=== PATIENT | female | born 1955 | race Caucasian/White ===

== ENCOUNTER → 2017-02-18 | Outpatient (CLI) | payer OTHER ==
[~2017-02-18] MED LIST: BUPR15TA PO; LOTR52CA PO; VITA100066 PO
--- NOTE | 2017-02-18 20:03 | ECGEPIP ---
Stationary ECG Study [facility] Test Date: 2017-02-18 Pat Name: KVNG COBB Department: Room: - Gender: F Vice President For Instruction: : 1955 Requested By: GARRETT Rao Order Number: [id number] Reading MD: Arnulfo Johnston Measurements Intervals [place] Rate: 73 P: 67 [place]: 160 QRS: 77 QRSD: 96 T: 65 QT: 399 QTc: 440 Interpretive Statements SINUS RHYTHM Baseline artifact Similar to tracing 11-30-15 Electronically Signed On 02-18-2017 20:03:16 EDT by Arnulfo Johnston
== END ==
LOC: M EKG 16:46
PROVIDERS: ATTEND Anesthesiology
DX: Z00.00 Encounter for general adult medical examination without abnormal findings (principal)

== ENCOUNTER → 2017-02-23 | Day surgery (SDC) | payer OTHER ==
[~2017-02-23] VITALS: Ht 167.6 cm; Wt 63.5 kg
[~2017-02-23] MED LIST changes: +BUPIVACAINE/EPIN 0.5% 30 ML VIAL As Ordered ONE; +FLUMAZENIL 0.5 MG/5 ML VIAL As Ordered ONE; +LIDOCAINE 2% INJ 100 MG/5 ML SDV (FOR ANES.) As Ordered ONE; +LIDOCAINE W/EPINEPHRINE 1% 20ML VIAL As Ordered ONE; +LR 1,000 ML IV SCH; +MIDAZOLAM INJ 2 MG/2 ML VIAL (J2250) As Ordered ONE; +MORPHINE 10 MG/ML 1ML VIAL IV PRN; +ONDANSETRON 4MG/2ML VIAL (J2405) As Ordered ONE; +ONDANSETRON 4MG/2ML VIAL (J2405) IV PRN; +PERCOCET 5MG/325MG TAB PO PRN; +PROPOFOL 200 MG/20 ML VIAL As Ordered ONE; +ROCURONIUM BROMIDE 50 MG/5 ML VIAL As Ordered ONE; +dexameTHASONE 4 MG/ML 1ML VIAL (J1100) As Ordered ONE; +ePHEDrine SULFATE 25 MG/5 ML(5MG/ML) SYRINGE As Ordered ONE; +fentaNYL 100 MCG/2 ML INJECTION (J3010) IV PRN; +fentaNYL 250 MCG/5 ML INJECTION (J3010) As Ordered ONE
[2017-02-23 14:30] VITALS: BP 143/87
--- NOTE | 2017-02-23 23:17 | RO ---
DATE OF PROCEDURE: 02/23/2017 PREPROCEDURE DIAGNOSIS: Sleep apnea. POSTPROCEDURE DIAGNOSIS: Sleep apnea. OPERATIVE PROCEDURE: Lateral pharyngoplasty. SURGEON: Fortunato Bianchi MD COUNTER TENDER: ANESTHESIA: General. DESCRIPTION OF PROCEDURE: Under general anesthesia, the patient was intubated. I infiltrated the area with lidocaine and epinephrine. I then made an incision at the anterior pillar, dissected down to the tonsil, dissected the tonsil free and then removed the tonsil using Coblator at a setting of 6 and 4. This same procedure was performed on the both sides. Then using the cautery I made an incision in the inferior aspect of the posterior pillar through the muscle and dissected a 1 cm wide strip of muscle superiorly based by using the cautery. Once this was elevated then I put a suture of #3-0 Vicryl through the area. I then put a suture around the levator veli palatini muscle and then sutured to the posterior aspect of the maxillary arch just posterior to the last tooth. I then used the needle and then threaded it and put the other side of that suture through that and then tied that suture anterior-superiorly. The same procedure performed on the opposite side. There was less than 1 mL of blood loss. The patient tolerated the procedure well. A nasogastric tube was passed to suction the upper esophagus. The patient tolerated the procedure well, was extubated and transferred to the recovery room in excellent condition.
== END | disposition home or self-care (01) ==
LOC: M SDC 10:24
PROVIDERS: ATTEND Otolaryngology
DX: G47.33 Obstructive sleep apnea (adult) (pediatric) (principal); I10 Essential (primary) hypertension; F32.9 Major depressive disorder, single episode, unspecified; Z79.899 Other long term (current) drug therapy
CPT/HCPCS: 42950; 88302; J1100; J2250; J2405; J3010

== ENCOUNTER 2017-05-13 09:09 | Emergency (ER) | payer OTHER ==
[~2017-05-13] VITALS: Ht 167.6 cm; Wt 63.6 kg
[~2017-05-13 09:09] MED LIST changes: -BUPIVACAINE/EPIN 0.5% 30 ML VIAL As Ordered ONE; -FLUMAZENIL 0.5 MG/5 ML VIAL As Ordered ONE; -LIDOCAINE 2% INJ 100 MG/5 ML SDV (FOR ANES.) As Ordered ONE; -LIDOCAINE W/EPINEPHRINE 1% 20ML VIAL As Ordered ONE; -LR 1,000 ML IV SCH; -MIDAZOLAM INJ 2 MG/2 ML VIAL (J2250) As Ordered ONE; -MORPHINE 10 MG/ML 1ML VIAL IV PRN; -ONDANSETRON 4MG/2ML VIAL (J2405) As Ordered ONE; -ONDANSETRON 4MG/2ML VIAL (J2405) IV PRN; -PERCOCET 5MG/325MG TAB PO PRN; -PROPOFOL 200 MG/20 ML VIAL As Ordered ONE; -ROCURONIUM BROMIDE 50 MG/5 ML VIAL As Ordered ONE; -dexameTHASONE 4 MG/ML 1ML VIAL (J1100) As Ordered ONE; -ePHEDrine SULFATE 25 MG/5 ML(5MG/ML) SYRINGE As Ordered ONE; -fentaNYL 100 MCG/2 ML INJECTION (J3010) IV PRN; -fentaNYL 250 MCG/5 ML INJECTION (J3010) As Ordered ONE
--- NOTE | 2017-05-13 10:05 | REP ---
CT Head without contrast HISTORY: Headache COMPARISON: 11/30/2015 There is no intraparenchymal hemorrhage, acute infarct, mass or midline shift. The ventricular system is normal in appearance. There is no extra cerebral collection. There is no fracture. The visualized sinuses are clear. IMPRESSION: There is no intracranial lesion. Signed by Thompson Bui MD 05/13/2017 09:56 A
[2017-05-13 10:31] LABS: BASO % 0.8 % (0.0-1.0); EOS # 0.1 K/mm3 (0.0-0.50); EOS % 1.7 % (0.0-3.0); LARGE UNSTAINED CELL # 0.1 K/mm3 (0.0-0.4); LYMPH % 22.9 % (24.0-44.0); MEAN CORPUSCULAR HEMOGLOBIN 30.9 pg (27.0-33.0); MEAN CORPUSCULAR HGB CONC 34.4 g/dl (32.0-36.5); MEAN CORPUSCULAR VOLUME 90.1 fl (80.0-96.0); MONO # 0.3 K/mm3 (0.0-0.8); NEUTROPHILS # 3.1 K/mm3 (1.8-7.7); NEUTROPHILS % 67.5 % (36.0-66.0); PLATELET COUNT, AUTOMATED 334 k/mm3 (150-450); RED CELL DISTRIBUTION WIDTH 12.2 % (11.5-14.5); WHITE BLOOD COUNT 4.5 K/mm3 (4.0-10.0)
[2017-05-13 10:44] LABS: ANION GAP 5 MEQ/L (8-16); BLOOD UREA NITROGEN 12 MG/DL (7-18); CALCIUM LEVEL 9.2 MG/DL (8.8-10.2); CARBON DIOXIDE LEVEL 26 MEQ/L (21-32); CHLORIDE LEVEL 108 MEQ/L (98-107); CREATININE FOR GFR 0.88 MG/DL (0.55-1.02); GLOMERULAR FILTRATION RATE > 60.0 (>45); GLUCOSE, FASTING 124 MG/DL (80-110); POTASSIUM SERUM 3.7 MEQ/L (3.5-5.1); SODIUM LEVEL 139 MEQ/L (136-145)
[2017-05-13 11:24] LABS: MAGNESIUM LEVEL 2.2 MG/DL (1.8-2.4)
[2017-05-13 12:18] VITALS: BP 153/84
--- NOTE | 2017-05-13 21:56 | ECGEPIP ---
Stationary ECG Study [facility] - ED Test Date: 2017-05-13 Pat Name: KVNG COBB Department: Room: - Gender: F Dispensary Attendant: kimberly : 1955 Requested By: ENOCH LOVING PA-C. Order Number: [id number] Reading MD: Lelo Coffey Measurements Intervals [place] Rate: 72 P: 66 NC: 155 QRS: 70 QRSD: 92 T: 62 QT: 413 QTc: 453 Interpretive Statements SINUS RHYTHM NSTTW ABNORMALITY SIMILAR 02/18/17 Electronically Signed On 05-13-2017 21:55:30 EDT by Lelo Coffey
== END 2017-05-13 12:23 | disposition home or self-care (01) ==
LOC: M ED 09:09 → EDBD 09:09 → M ED 12:23
DX: T62.8X1A Toxic effect of other specified noxious substances eaten as food, accidental (unintentional), initial encounter (principal); E86.0 Dehydration; Z88.8 Allergy status to other drugs, medicaments and biological substances; Z87.891 Personal history of nicotine dependence; Z79.899 Other long term (current) drug therapy

== ENCOUNTER 2017-06-26 12:30 | Emergency (ER) | payer OTHER ==
[~2017-06-26] VITALS: Ht 167.6 cm; Wt 63.6 kg
[2017-06-26] MEDS ORDERED: ZOLP5TAB PO (12:53)
[2017-06-26 13:46] LABS: BASO % 0.6 % (0.0-1.0); EOS # 0.1 K/mm3 (0.0-0.50); EOS % 2.7 % (0.0-3.0); LARGE UNSTAINED CELL # 0.1 K/mm3 (0.0-0.4); LARGE UNSTAINED CELL % 2.1 % (0.0-4.0); LYMPH # 1.4 K/mm3 (1.5-4.5); LYMPH % 39.5 % (24.0-44.0); MEAN CORPUSCULAR HEMOGLOBIN 30.7 pg (27.0-33.0); MEAN CORPUSCULAR HGB CONC 34.5 g/dl (32.0-36.5); MEAN CORPUSCULAR VOLUME 88.9 fl (80.0-96.0); MONO # 0.2 K/mm3 (0.0-0.8); MONO % 6.6 % (0.0-5.0); NEUTROPHILS # 1.7 K/mm3 (1.8-7.7); NEUTROPHILS % 48.5 % (36.0-66.0); PLATELET COUNT, AUTOMATED 307 k/mm3 (150-450); WHITE BLOOD COUNT 3.4 K/mm3 (4.0-10.0)
[2017-06-26 13:58] LABS: INR 0.99
[2017-06-26 14:06] LABS: ALBUMIN 4.1 GM/DL (3.2-5.2); ALBUMIN/GLOBULIN RATIO 1.11 (1.00-1.93); ALKALINE PHOSPHATASE 53 U/L (45-117); ALT/SGPT 15 U/L (12-78); ANION GAP 6 MEQ/L (8-16); AST/SGOT 11 U/L (15-37); BILIRUBIN,DIRECT < 0.1 MG/DL (0.0-0.2); BILIRUBIN,TOTAL 0.4 MG/DL (0.2-1.0); BLOOD UREA NITROGEN 10 MG/DL (7-18); CALCIUM LEVEL 9.4 MG/DL (8.8-10.2); CARBON DIOXIDE LEVEL 29 MEQ/L (21-32); CHLORIDE LEVEL 107 MEQ/L (98-107); CREATININE FOR GFR 0.87 MG/DL (0.55-1.02); GLOMERULAR FILTRATION RATE > 60.0 (>45); GLUCOSE, FASTING 86 MG/DL (80-110); SODIUM LEVEL 142 MEQ/L (136-145); TOTAL PROTEIN 7.8 GM/DL (6.4-8.2)
[2017-06-26] MEDS ORDERED: HEPARIN DRIP 25,000 UNITS in APPROPRIATE DILUENT 1 EA IV SCH (14:17)
[2017-06-26] MEDS ORDERED: ASPIRIN 325 MG TAB PO ONE (14:30)
[2017-06-26] MEDS ORDERED: HEPARIN SOD (PORCINE) 5000 UNITS/ML VIAL IV ONE (14:30)
[2017-06-26] MEDS ORDERED: CLOPIDOGREL 300 MG TAB (PLAVIX) PO ONE (14:30)
--- NOTE | 2017-06-26 14:59 | REP ---
CHEST X-RAY: Two views. HISTORY: Chest pain. COMPARISON STUDY: November 30, 2015. FINDINGS: EKG monitoring electrodes are seen. The lungs are well inflated and clear. Pleural angles are sharp. Heart size is normal. No significant bony abnormality is seen. IMPRESSION: No active disease. Signed by Alex Castano MD 06/26/2017 04:58 P
[2017-06-26 15:10] VITALS: BP 174/91
--- NOTE | 2017-06-28 08:11 | ECGEPIP ---
Stationary ECG Study [facility] - ED Test Date: 2017-06-26 Pat Name: KVNG COBB Department: Room: - Gender: F Electronic Maintenance Supervisor: YAAKOV : 1955 Requested By: DUSTIN Mccormick Order Number: [id number] Reading MD: Lelo Coffey Measurements Intervals [place] Rate: 81 P: 60 VA: 132 QRS: 79 QRSD: 95 T: 53 QT: 395 QTc: 460 Interpretive Statements SINUS RHYTHM NSTTW ABNORMALITY SIMILAR 05/13/17 Electronically Signed On 06-28-2017 8:10:32 EDT by Lelo Coffey
== END 2017-06-26 15:13 | disposition short-term general hospital (02) ==
LOC: M ED 12:30
DX: I20.0 Unstable angina (principal); R94.31 Abnormal electrocardiogram [ECG] [EKG]; G45.8 Other transient cerebral ischemic attacks and related syndromes; F32.9 Major depressive disorder, single episode, unspecified; G47.30 Sleep apnea, unspecified; Z87.891 Personal history of nicotine dependence; Z79.899 Other long term (current) drug therapy; Z88.8 Allergy status to other drugs, medicaments and biological substances

== ENCOUNTER → 2017-09-23 | Outpatient (CLI) | payer OTHER ==
[~2017-09-23] MED LIST changes: +ZOLP5TAB PO
[2017-09-23 15:42] LABS: IONIZED CALCIUM 4.7 MG/DL (4.5-5.3)
[2017-09-23 16:01] LABS: BASO % 0.5 % (0.0-1.0); EOS # 0.1 10^3/uL (0.0-0.50); EOS % 2.7 % (0.0-3.0); LYMPH # 1.7 10^3/uL (1.5-4.5); LYMPH % 40.5 % (24.0-44.0); MEAN CORPUSCULAR HGB CONC 33.3 g/dl (32.0-36.5); MONO # 0.4 10^3/uL (0.0-0.8); MONO % 8.7 % (0.0-5.0); NEUTROPHILS % 47.6 % (36.0-66.0); PLATELET COUNT, AUTOMATED 329 10^3/uL (150-450); RED CELL DISTRIBUTION WIDTH 11.6 % (11.5-14.5); WHITE BLOOD COUNT 4.2 10^3/uL (4.0-10.0)
[2017-09-23 18:11] LABS: ERYTHROCYTE SEDIMENTATION RATE 11 mm/hr (0-30)
== END ==
LOC: M LAB 15:11
PROVIDERS: ATTEND Otolaryngology
DX: H93.13 Tinnitus, bilateral (principal)

== ENCOUNTER → 2017-12-08 | Outpatient (REF) ==
[2017-12-09 09:20] LABS: RUBELLA IgG QUALITATIVE IMMUNE (IMMUNE)
== END ==
LOC: M LAB 09:05
DX: Z02.89 Encounter for other administrative examinations (principal)

== ENCOUNTER 2019-02-27 21:59 | Observation (INO) | payer OTHER ==
[~2019-02-27] VITALS: Ht 167.6 cm; Wt 65.3 kg
[2019-02-27] MEDS: CARVedilol 3.125 MG TAB PO SCH (21:00)
[~2019-02-27 21:59] MED LIST changes: +ASPI81TA26 PO; +CARV3.12 PO; +D 50CAP PO; +ZOLP12.515 PO; +buPROPion **SR TABLET** (ZYBAN) 150MG PO SCH
[2019-02-27] MEDS ORDERED: CHARCOAL ACTIVATED LIQUID 25 GM/120 ML BTL PO ONE (22:45)
[2019-02-27 22:57] LABS: HEMATOCRIT 34.7 % (36.0-47.0); HEMOGLOBIN 11.6 g/dl (12.0-15.5); MEAN CORPUSCULAR HEMOGLOBIN 30.4 pg (27.0-33.0); MEAN CORPUSCULAR HGB CONC 33.4 g/dl (32.0-36.5); MEAN CORPUSCULAR VOLUME 90.8 fl (80.0-96.0); PLATELET COUNT, AUTOMATED 256 10^3/uL (150-450); RED BLOOD COUNT 3.82 10^6/uL (4.00-5.40)
[2019-02-27] MEDS ORDERED: AMLO5TAB6 PO (23:14)
[2019-02-27] MEDS ORDERED: DOCU100C16 PO (23:14)
[2019-02-27] MEDS ORDERED: TIZA4CAP PO (23:14)
[2019-02-27] MEDS ORDERED: ASPI81CH48 PO (23:14)
[2019-02-27] MEDS ORDERED: LOSA50TA88 PO (23:14)
[2019-02-27 23:28] LABS: ACETAMINOPHEN LEVEL < 2.0 UG/ML (10.0-30.0); ALBUMIN 3.5 GM/DL (3.2-5.2); ALT/SGPT 17 U/L (12-78); BILIRUBIN,DIRECT < 0.1 MG/DL (0.0-0.2); BILIRUBIN,TOTAL 0.2 MG/DL (0.2-1.0); BLOOD UREA NITROGEN 15 MG/DL (7-18); CALCIUM LEVEL 8.5 MG/DL (8.8-10.2); CARBON DIOXIDE LEVEL 27 MEQ/L (21-32); CHLORIDE LEVEL 108 MEQ/L (98-107); CREATININE FOR GFR 0.85 MG/DL (0.55-1.30); ETHYL ALCOHOL (ETHANOL) < 0.003 % (0.000-0.010); GLOMERULAR FILTRATION RATE > 60.0 (>45); GLUCOSE, FASTING 82 MG/DL (70-100); SALICYLATE LEVEL < 1.7 MG/DL (5.0-30.0); SODIUM LEVEL 142 MEQ/L (136-145); TOTAL PROTEIN 6.5 GM/DL (6.4-8.2)
[2019-02-28 00:11] LABS: AMPHETAMINES LEVEL URINE NEGATIVE (NEGATIVE); BARBITURATES URINE NEGATIVE (NEGATIVE); BENZODIAZEPINES URINE NEGATIVE (NEGATIVE); CANNABINOIDS URINE NEGATIVE (NEGATIVE); COCAINE METABOLITE URINE NEGATIVE (NEGATIVE); METHADONE URINE NEGATIVE (NEGATIVE); OPIATES URINE NEGATIVE (NEGATIVE); PHENCYCLIDINE URINE NEGATIVE (NEGATIVE)
[2019-02-28] MEDS ORDERED: ACETAMINOPHEN TAB 650MG DOSE (2X325MG) PO PRN (00:30)
[2019-02-28] MEDS ORDERED: NS 1,000 ML IV SCH (00:30)
[2019-02-28] MEDS ORDERED: tiZANidine 4 MG TAB PO PRN (00:30)
--- NOTE | 2019-02-28 00:30 | HPEPDOC ---
General Date of Admission Chief Complaint The patient is a 64-year-old female admitted with a reason for visit of Overdose. Source: Patient History of Present Illness 64 y/o F with h/o insomnia took 12.5 mg ambien tabs by mistake after that she was feeling a bit drowsy; called her PMD office and was asked to come to ER. IN ER pt was found with vitals of BP 135/72, HR 73, RR 16, Temp 96.0, SpO2- 93% on RA; Pt was found drowsy. Hospitalist service was consulted to admit the pt for observation. Pt was seen and examined at bedside in ER. Pt was drowsy but oriented to time place and person. Pt was following commands. Pt denied any other complaint. Home Medications Scheduled Amlodipine Besylate (Amlodipine Besylate) 5 Mg Tablet, 5 MG PO DAILY, (Reported) Aspirin (Aspirin) 81 Mg Tab.chew, 81 MG PO DAILY, (Reported) Bupropion HCl (Wellbutrin Sr) 150 Mg Tabcr, 150 MG PO BID, (Reported) Carvedilol (Carvedilol) 3.125 Mg Tab, 3.125 MG PO BID, (Reported) Cholecalciferol (Vitamin D3) (Vitamin D3) 5,000 Unit Cap, 5,000 UNIT PO DAILY, (Reported) Docusate Sodium (Docusate Sodium) 100 Mg Capsule, 100 MG PO BID, (Reported) Losartan Potassium (Losartan Potassium) 50 Mg Tablet, 50 MG PO DAILY, (Reported) Scheduled PRN Tizanidine HCl (Tizanidine HCl) 4 Mg Capsule, 4 MG PO TID PRN for MUSCLE SPASMS, (Reported) Zolpidem Tartrate (Zolpidem Tartrate ER) 12.5 Mg Tab, 12.5 MG PO QHS PRN for sleep, (Reported) Allergies Coded Allergies: methocarbamol (Verified Allergy, Unknown, 02/03/19) Past Medical History Medical History HTN, depression, reactive leucopenia, insomnia. Surgical History left subclavian stent placement Family History reviewed, non contributory Social History * Smoker: former Smoker Alcohol: occationally Drugs: denies A-FIB/CHADSVASC A-FIB History Current/History of A-Fib/PAF?: No Current Oral Anticoagulant The: No Review of Systems Other systems 10 points review of system was performed and it was negative except as per HPI Physical Examination General Exam: Positive: Other Eye Exam: Positive: PERRLA ENT Exam: Positive: Atraumatic, Mucous membr. moist/pink Neck Exam: Positive: Supple Chest Exam: Positive: Clear to auscultation, Normal air movement Heart Exam: Positive: Rate Normal, Normal S1, Normal S2 Abdomen Exam: Positive: Normal bowel sounds, Soft Extremity Exam: Positive: Normal pulses Skin Exam: Positive: Nl turgor and temperature Neuro Exam: Positive: Normal Speech, Strength at 5/5 X4 ext, Cranial Nerves 3- 12 NL Psych Exam: Positive: Oriented x 3 Other physical findings drowsy Vital Signs Vital Signs Date Time Temp Pulse Resp B/P (MAP) Pulse Ox O2 Delivery O2 Flow Rate FiO2 02/27/19 23:42 67 20 130/73 (92) 99 Room Air 02/27/19 22:11 96.0 Laboratory Data Labs 24H Laboratory Tests 2 02/27/19 22:46: Nucleated Red Blood Cells % (auto) 0.0, Anion Gap 7L, Glomerular Filtration Rate > 60.0, Calcium Level 8.5L, Aspartate Amino Transf (AST/SGOT) 14, Alanine Aminotransferase (ALT/SGPT) 17, Alkaline Phosphatase 43L, Total Bilirubin 0.2, Direct Bilirubin < 0.1, Total Protein 6.5, Albumin 3.5, Albumin/Globulin Ratio 1.17, Thyroid Stimulating Hormone (TSH) 2.650, Salicylates Level < 1.7L, Acetaminophen Level < 2.0L, Ethyl Alcohol Level < 0.003 02/27/19 23:36: Urine Amphetamines Screen NEGATIVE, Urine Benzodiazepines Screen NEGATIVE, Urine Opiates Screen NEGATIVE, Urine Methadone Screen NEGATIVE, Urine Barbiturates Screen NEGATIVE, Urine Phencyclidine Screen NEGATIVE, Urine Cocaine Metabolite Screen NEGATIVE, Urine Cannabinoids Screen NEGATIVE CBC/BMP Laboratory Tests 02/27/19 22:46 Red Blood Count 3.82 L, Mean Corpuscular Volume 90.8, Mean Corpuscular Hemoglobin 30.4, Mean Corpuscular Hemoglobin Concent 33.4, Red Cell Distribution Width 11.8 Assessment/Plan 64 y/o F c/o drowsiness after accidently overdosing on PO Ambien Labs reviewed Utox reviewed Impression- drowsiness secondary to suspected accidental Ambient overdose Problems (1) Accidental overdose Status: Acute Problem Text: supportive care ivf, neurochecks, pulse oxy (2) HTN (hypertension) Status: Chronic Problem Text: will resume home meds (3) Depression Status: Chronic Problem Text: will resume home meds (4) Insomnia Status: Chronic Problem Text: will hold home meds for now (5) Leukopenia Status: Chronic Problem Text: stable Plan / VTE VTE Prophylaxis Ordered?: No VTE Exclusion Mechanical Proph: Low Risk for VTE JOSE OBRIEN MD Feb 28, 2019 00:30
[2019-02-28] MEDS: DOCUSATE SODIUM 100 MG CAP PO SCH ×2 (02:04→08:41)
[2019-02-28 08:00] VITALS: BP 132/81
[2019-02-28] MEDS: CARVedilol 3.125 MG TAB PO SCH (08:42)
[2019-02-28 08:43] VITALS: BP 132/81
--- NOTE | 2019-02-28 08:52 | DS.PDOC ---
Discharge Summary General Date of Admission Feb 28, 2019 at 00:16 Date of Discharge Feb 28, 2019 Attending Physician: ACE DC MD Discharge Summary PROCEDURES PERFORMED DURING STAY: [None]. ADMITTING DIAGNOSES: 1. Accidental zolpidem overdose DISCHARGE DIAGNOSES: 1. Accidental zolpidem overdose COMPLICATIONS/CHIEF COMPLAINT: Sedative Overdose. HISTORY OF PRESENT ILLNESS: Patient is a 64-year-old white female, with a history of insomnia, who presented to the emergency room via EMS after accidentally taking for 12.5 mg Ambien tablets x4 by mistake. Patient immediately realized that she had accidentally taken the wrong medication and contacted her primary care answering service who advised the patient to call an ambulance and presented to the emergency room. EMS arrived and found the patient to be responsive, oriented to time place and person, albeit extremely drowsy. HOSPITAL COURSE: Once in the emergency department, patient was given activated charcoal. Vital si gns remained stable. Laboratory examination did not indicate any serious abnormalities. ECG was normal. Patient denied wishing to hurt herself or others. Hospitalist was called for further admission and subsequent overnight observation. Patient remained in ED holding overnight, where she received IV fluids and regular neuro checks. Home medications for hypertension, depression, Vitamin D deficiency were given. She reports waking at approximately 0200 this morning. She denies any persistent drowsiness or difficulty concentrating. She denies any pain or discomfort. She has ambulated and urinated without any difficulty. Patient requesting to return home with outpatient follow-up. Risk mitigation strategies to prevent recurrence were discussed. DISCHARGE MEDICATIONS: Please see below. ALLERGIES: Please see below. PHYSICAL EXAMINATION ON DISCHARGE: VITAL SIGNS: Please see below. GENERAL: Awake, alert, oriented to person place and time. In no acute distress. Very pleasant female appearing of stated age in hospital gown. HEENT: EOMI, PERRLA, no scleral icterus, mucous membranes moist NECK: No lymphadenopathy, tracheal deviation CARDIOVASCULAR EXAMINATION: Regular rate and rhythm, normal S1 and S2, no murmurs RESPIRATORY EXAMINATION: Clear to auscultation bilaterally. Good air movement throughout without wheezing rales or rhonchi. ABDOMINAL EXAMINATION: Soft, nontender, nondistended, no masses palpated EXTREMITIES: Able to move all extremities independently and freely. No weakness. No lower extremity edema, no calf tenderness. SKIN: No new or evolving lesions NEUROLOGICAL EXAMINATION: Awake, alert, oriented to person place and time. No focal neurologic deficits. PSYCHIATRIC EXAMINATION: Mood and affect are appropriate. Patient denies thoughts of wanting to harm self or others. LABORATORY DATA: Please see below. IMAGING: None ACTIVITY: As tolerated DIET: As tolerated DISCHARGE PLAN: Home with self-care DISCHARGE INSTRUCTIONS: 1. Please follow-up with primary care provider within 1 week 2. Please implement new organizational system to prevent accidental medication admin in the future. 3. Remain compliant with treatment plan and medications 4. Return to the ER if you experience any problems DISCHARGE CONDITION: Stable TIME SPENT ON DISCHARGE: Greater than 35 minutes. Vital Signs/I&Os Vital Signs Date Time Temp Pulse Resp B/P (MAP) Pulse Ox O2 Delivery O2 Flow Rate FiO2 02/28/19 08:00 96.1 74 18 132/81 (98) 98 02/28/19 06:43 Room Air Laboratory Data Labs 24H Laboratory Tests 2 02/27/19 22:46: Nucleated Red Blood Cells % (auto) 0.0, Anion Gap 7L, Glomerular Filtration Rate > 60.0, Calcium Level 8.5L, Aspartate Amino Transf (AST/SGOT) 14, Alanine Aminotransferase (ALT/SGPT) 17, Alkaline Phosphatase 43L, Total Bilirubin 0.2, D irect Bilirubin < 0.1, Total Protein 6.5, Albumin 3.5, Albumin/Globulin Ratio 1.17, Thyroid Stimulating Hormone (TSH) 2.650, Salicylates Level < 1.7L, Acetaminophen Level < 2.0L, Ethyl Alcohol Level < 0.003 02/27/19 23:36: Urine Amphetamines Screen NEGATIVE, Urine Benzodiazepines Screen NEGATIVE, Urine Opiates Screen NEGATIVE, Urine Methadone Screen NEGATIVE, Urine Barbiturates Screen NEGATIVE, Urine Phencyclidine Screen NEGATIVE, Urine Cocaine Metabolite Screen NEGATIVE, Urine Cannabinoids Screen NEGATIVE CBC/BMP Laboratory Tests 02/27/19 22:46 Red Blood Count 3.82 L, Mean Corpuscular Volume 90.8, Mean Corpuscular Hemoglobin 30.4, Mean Corpuscular Hemoglobin Concent 33.4, Red Cell Distribution Width 11.8 Discharge Medications Scheduled Amlodipine Besylate (Amlodipine Besylate) 5 Mg Tablet, 5 MG PO DAILY, (Reported) Aspirin (Aspirin) 81 Mg Tab.chew, 81 MG PO DAILY, (Reported) Bupropion HCl (Wellbutrin Sr) 150 Mg Tabcr, 150 MG PO BID, (Reported) Carvedilol (Carvedilol) 3.125 Mg Tab, 3.125 MG PO BID, (Reported) Cholecalciferol (Vitamin D3) (Vitamin D3) 5,000 Unit Cap, 5,000 UNIT PO DAILY, (Reported) Docusate Sodium (Docusate Sodium) 100 Mg Capsule, 100 MG PO BID, (Reported) Losartan Potassium (Losartan Potassium) 50 Mg Tablet, 50 MG PO DAILY, (Reported) Scheduled PRN Tizanidine HCl (Tizanidine HCl) 4 Mg Capsule, 4 MG PO TID PRN for MUSCLE SPASMS, (Reported) Zolpidem Tartrate (Zolpidem Tartrate ER) 12.5 Mg Tab, 12.5 MG PO QHS PRN for sleep, (Reported) Allergies Coded Allergies: methocarbamol (Verified Allergy, Unknown, 02/03/19) GME ATTESTATION GME ATTESTATION My faculty preceptor for this patient encounter was physically present during the encounter and was fully available. All aspects of the patient interview, examination, medical decision making process, and medical care plan development were reviewed and approved by the faculty preceptor. The faculty preceptor is aware and concurs with the plan as stated in the body of this note and will attest to such by his/her cosignature. ATTENDING NOTE I, Ace Dc, have both independently examined this patient as well as reviewed the documentation. I have discussed in detail with the resident the findings and plan of treatment as documented in the residents documentation. I will continue to follow the patient and offer further guidance to the patients care as necessary during this hospital stay. MARIAM ARMAS DO Feb 28, 2019 08:52 ACE DC MD Feb 28, 2019 21:19
[2019-02-28] MEDS ORDERED: LOSARTAN 50 MG TAB PO SCH (09:00)
[2019-02-28] MEDS ORDERED: ASPIRIN 81 MG CHEW TABLET PO SCH (09:00)
[2019-02-28] MEDS ORDERED: amLODIPine 5 MG TAB PO SCH (09:00)
[2019-02-28] MEDS ORDERED: VITAMIN D 1,000 INTERNATIONAL UNITS TABLET PO SCH (09:00)
--- NOTE | 2019-02-28 14:44 | ECGEPIP ---
Stationary ECG Study [facility] - ED Test Date: 2019-02-27 Pat Name: KVNG COBB Department: Room: [place] [address] Gender: F Frame Runner: GARCÍA : 1955 Requested By: MELISSA BEAULIEU Order Number: [id number] Reading MD: Arnulfo Johnston Measurements Intervals [place] Rate: 71 P: 68 MD: 152 QRS: 78 QRSD: 100 T: 57 QT: 407 QTc: 443 Interpretive Statements SINUS RHYTHM Similar to tracing done 06-26-17 Electronically Signed On 02-28-2019 14:43:44 EDT by Arnulfo Johnston
== END 2019-02-28 10:05 | disposition home or self-care (01) ==
LOC: EDBD 21:59 → M ED 21:59 → M ED INP 22:00 → UNDOADMOB 02-28 00:16 → UNDODISOB 02-28 10:05
PROVIDERS: ADMIT Internal Medicine; ATTEND Internal Medicine
DX: T42.6X1A Poisoning by other antiepileptic and sedative-hypnotic drugs, accidental (unintentional), initial encounter (principal); Y92.009 Unspecified place in unspecified non-institutional (private) residence as the place of occurrence of the external cause; I10 Essential (primary) hypertension; F32.9 Major depressive disorder, single episode, unspecified; E55.9 Vitamin D deficiency, unspecified; Z79.82 Long term (current) use of aspirin; G47.00 Insomnia, unspecified; Z88.8 Allergy status to other drugs, medicaments and biological substances; Z79.899 Other long term (current) drug therapy
CPT/HCPCS: 36415; 80048; 80076; 80307; 84443; 85027; 93005; 96374; 99285; G0480

== ENCOUNTER 2019-08-01 09:57 | Day surgery (SDC) | payer OTHER ==
[~2019-08-01] VITALS: Ht 167.6 cm; Wt 61.7 kg
[~2019-08-01 09:57] MED LIST changes: +AMLO5TAB6 PO; +ASPI81CH48 PO; +DOCU100C16 PO; +HYDR25TAB PO; +LOSA50TA88 PO; +NS 1,000 ML IV SCH; +TIZA4CAP PO; -buPROPion **SR TABLET** (ZYBAN) 150MG PO SCH
[2019-08-01] MEDS ORDERED: PROPOFOL 200 MG/20 ML VIAL As Ordered ONE (10:39)
[2019-08-01] MEDS ORDERED: LIDOCAINE 2% INJ 100 MG/5 ML SDV (FOR ANES.) As Ordered ONE (10:40)
--- NOTE | 2019-08-01 11:36 | ROOR ---
Patient Name: Kayla Lou Procedure Date: 08/01/2019 11:12 AM Date of : 1955 Age: 64 Room: [facility] Gender: Female Note Status: Finalized Procedure: Total Colonoscopy to Cecum Indications: Chronic idiopathic constipation Providers: Charles Sinha MD Referring MD: DANAY JON MD Requesting Provider: Medicines: Monitored Anesthesia Care Complications: No immediate complications. Procedure: Pre-Anesthesia Assessment: - The heart rate, respiratory rate, oxygen saturations, blood pressure, adequacy of pulmonary ventilation, and response to care were monitored throughout the procedure. The Colonoscope was introduced through the anus and advanced to the cecum, identified by appendiceal orifice and ileocecal valve. The colonoscopy was performed without difficulty. The patient tolerated the procedure well. The quality of the bowel preparation was excellent. Findings: The perianal and digital rectal examinations were normal. Non-bleeding internal hemorrhoids were found during retroflexion. The hemorrhoids were small and Grade I (internal hemorrhoids that do not prolapse). Multiple small and large-mouthed diverticula were found in the recto-sigmoid colon, sigmoid colon and descending colon. The exam was otherwise without abnormality on direct and retroflexion views. Impression: - Non-bleeding internal hemorrhoids. - Diverticulosis in the recto-sigmoid colon, in the sigmoid colon and in the descending colon. - The examination was otherwise normal on direct and retroflexion views. - No specimens collected. - The exam was otherwise normal to the cecum. Recommendation: - Patient has a contact number available for emergencies. The signs and symptoms of potential delayed complications were discussed with the patient. Return to normal activities tomorrow. Written discharge instructions were provided to the patient. - High fiber diet. - Discharge patient to home. - Continue present medications. - Repeat colonoscopy in 10 years for screening purposes. - Return to referring physician. - The findings and recommendations were discussed with the patient's family. Charles Sinha MD Charles Sinha MD 08/01/2019 11:35:26 AM Electronically signed by Charles Sinha MD Number of Addenda: 0 Note Initiated On: 08/01/2019 11:12 AM Estimated Blood Loss: Estimated blood loss: none.
[2019-08-01 11:57] VITALS: BP 123/67
== END 2019-08-01 12:05 | disposition home or self-care (01) ==
LOC: M OPP 09:57
PROVIDERS: ATTEND Internal Medicine Gastroenterology
DX: K64.0 First degree hemorrhoids (principal); K57.30 Diverticulosis of large intestine without perforation or abscess without bleeding; K59.04 Chronic idiopathic constipation; G47.33 Obstructive sleep apnea (adult) (pediatric); I34.0 Nonrheumatic mitral (valve) insufficiency; I50.32 Chronic diastolic (congestive) heart failure; I11.0 Hypertensive heart disease with heart failure; Z79.82 Long term (current) use of aspirin; Z79.899 Other long term (current) drug therapy; Z88.8 Allergy status to other drugs, medicaments and biological substances; Z87.891 Personal history of nicotine dependence

== ENCOUNTER → 2019-08-12 | Outpatient (CLI) | payer OTHER ==
[~2019-08-12] MED LIST changes: -NS 1,000 ML IV SCH
--- NOTE | 2019-08-26 01:32 | ECWPNPC ---
PATIENT NAME: KVNG COBB : 1955 GENDER: FEMALE VISIT DATE: 08/12/2019 DISCHARGE DATE: 08/12/19 153 VISIT LOCKED DATE TIME: PHYSICIAN: TRISTAN MANZO MD RESOURCE: TRISTAN MANZO MD REASON FOR APPOINTMENT 1. NECK & BACK HISTORY OF PRESENT ILLNESS HISTORY OF PRESENT ILLNESS: PAIN THE PATIENT DESCRIBES THE PAIN... 64 YEAR OLD FEMALE PATIENT WITH A HISTORY OF CHRONIC NECK AND THORACIC PAIN. THE PATIENT DESCRIBES THE PAIN ACHING AND DAILY WITH A PAIN SCORE OF 5-8/10 DEPENDING ON PHYSICAL ACTIVITY. THE PATIENT STATES SHE HAS BEEN SUFFERING FROM HER PAIN FOR SEVERAL YEARS AND IT IS AFFECTING HER ABILITY TO PERFORM HER DAILY ACTIVITIES SUCH SITTING, STANDING TOO LONG, RESTING, AND DAILY LIVING. THE PATIENT SAYS HER NECK PAIN BEGAN OVER A YEAR AGO AND INCREASES WITH MOVEMENT. THE PATIENT SAYS HER LOW BACK PAIN STARTED IN 2016, IS WORSE ON THE RIGHT SIDE, AND SITTING DOES NOT HELP HER PAIN. THE PATIENT MENTIONS SHE IS BEING FOLLOWED BY [facility] FOR HER NECK PAIN WITH NUMBNESS AND TINGLING DOWN HER LEFT ARM. THE PATIENT SAYS SHE HAS A HISTORY OF A LEFT SUBCLAVIAN STENT THAT WAS SURGICALLY DONE AROUND TWO YEARS AGO. PATIENT DENIES UNEXPLAINABLE WEIGHT LOSS, FEVER, CHILLS, NEW CHANGES ON HER URINARY OR BOWEL CONTROL. FALL RISK SCREENING: SCREENING :NO FALLS REPORTED IN THE LAST YEAR CURRENT MEDICATIONS TAKING ZOLPIDEM TARTRATE ER 12.5 MG TABLET EXTENDED RELEASE 1 TABLET AT BEDTIME NEEDED ORALLY ONCE A DAY TAKING TIZANIDINE HCL 4 MG TABLET 1/2 TO 1 TABLET NEEDED ORALLY TWO TIMES A DAY PRN TAKING LOSARTAN POTASSIUM 50 MG TABLET DIRECTED ORALLY TAKING BUPROPION HCL ER (SR) 150 MG TABLET EXTENDED RELEASE 12 HOUR 1 TABLET IN THE MORNING ORALLY ONCE A DAY TAKING VITAMIN D (ERGOCALCIFEROL) 51559 UNIT CAPSULE 1 CAPSULE ORALLY TAKING ASPIR-LOW 81 MG TABLET DELAYED RELEASE 1 TABLET ORALLY ONCE A DAY TAKING CARVEDILOL 3.125 MG TABLET DIRECTED ORALLY TAKING AMLODIPINE BESYLATE 5 MG TABLET 1 TABLET ORALLY ONCE A DAY TAKING HYDROCHLOROTHIAZIDE 25 MG TABLET 1 TABLET IN THE MORNING ORALLY ONCE A DAY DISCONTINUED WELLBUTRIN 100 MG TABLET 1 TABLET ORALLY BID MEDICATION LIST REVIEWED AND RECONCILED WITH THE PATIENT PAST MEDICAL HISTORY HTN HEADACHES LEFT SUBCLAVIAN STEAL SYNDROME ANXIETY DEPRESSION INSOMNIA SLEEP APNEA IMPROVED AFTER TONSILLECTOMY ALLERGIES METHOCARBAMOL: RASH - ALLERGY SURGICAL HISTORY TONSILLECTOMY DETACHED RETINA REPAIR LEFT SUBCLAVIAN STENT BILAT CATARACT SURGERY HYSTERECTOMY RIGHT MIDDLE FINGER TRIGGER FINGER REPAIR FAMILY HISTORY FATHER: ALIVE MOTHER: ALIVE 1 BROTHER(S) , 1 SISTER(S) . 1 SON(S) , 1 DAUGHTER(S) - HEALTHY. SOCIAL HISTORY GENERAL: TOBACCO USE ARE YOU A:FORMER SMOKER HOW LONG HAS IT BEEN SINCE YOU LAST SMOKED?> 10 YEARS PAIN CLINIC PFS, CLERGY, PUBLIC HEALTH REFERRALS HAS THE PATIENT BEEN EDUCATED REGARDING HIS/HER PLAN OF CARE?YES HAS THE PATIENT BEEN EDUCATED REGARDING PAIN, THE RISK FOR PAIN, THE IMPORTANCE OF EFFECTIVE PAIN MANAGEMENT, AND THE PAIN ASSESSMENT PROCESS?YES ADVANCE DIRECTIVE ADVANCE DIRECTIVE DISCUSSED WITH PATIENT:YES DECLINED JUDAISM [id number] OTHER LANGUAGE LANGUAGES SPOKEN:[place]ILI LEARNING BARRIERS / SPECIAL NEEDS BARRIERS TO LEARNING?NO HEARING IMPAIRED?NO VISION IMPAIRED?YES :CORRECTIVE LENSES COGNITIVELY IMPAIRED?NO READINESS TO LEARN?YES LEARNING PREFERENCES?NO LEARNING CAPABILITIES PRESENT?YES EMOTIONAL BARRIERS?NO SPECIAL DEVICES?NO HOSPITALIZATION/MAJOR DIAGNOSTIC PROCEDURE BLOOD PRESSURE/CHEST PRESSURE 04/2016 REVIEW OF SYSTEMS REVIEWED BY: PROVIDER: TRISTAN MANZO MD . CONSTITUTIONAL: ANY CHANGE IN YOUR MEDICAL CONDITION? YES, PT C/O NECK PAIN THIS PAST WEEK, AND TODAY THORACIC PAIN . CHILLS NO . FEVER NO . INFECTION: DO YOU HAVE NEW INFECTIONS? NO . DO YOU HAVE HISTORY OF MRSA? NO . MUSCULOSKELETAL: ANY NEW PATTERNS OF PAIN OR NUMBNESS? YES, RIGHT FOOT TOES TINGLING INTERMITTENT . GASTROENTEROLOGY: ANY NEW CHANGE IN BOWEL CONTROL? NO . GENITOURINARY: ANY NEW CHANGE IN BLADDER CONTROL? NO . IS THERE A CHANCE YOU COULD BE ? NO . HEMATOLOGY/LYMPH: DO YOU TAKE ANY BLOOD THINNERS? (FOR EXAMPLE- COUMADIN, PLAVIX, AGGRENOX, PLATEL, PRADAXA, OR XARELTO) NO . WHEN WAS YOUR LAST DOSE? DATE: TIME: . NEUROLOGY: HAVE YOU FALLEN IN THE PAST 12 MONTHS? NO . ANY NEW EXTREMITY NUMBNESS OR WEAKNESS? NO . CARDIOLOGY: DO YOU HAVE A PACEMAKER OR DEFIBRILLATOR? NO . RESPIRATORY: HAVE YOU BEEN SICK IN THE PAST WEEK? NO . FEVER NO . FLU LIKE SYMPTOMS? NO . COUGH NO . INTEGUMENTARY: DO YOU HAVE ANY RASHES OR OPEN SORES? NO . ALLERGIC/IMMUNO: ARE YOU ALLERGIC TO IV DYE? NO . ANY NEW ALLERGIES? NO . PSYCHIATRIC: DO YOU HAVE THOUGHTS OF HURTING YOURSELF OR SOMEONE ELSE? NO . ARE YOU ABUSED, NEGLECTED, OR IN AN UNSAFE ENVIRONMENT? NO . ENDOCRINOLOGY: ARE YOU DIABETIC? NO . OTHER: DO YOU NEED ANY PRESCRIPTIONS? NO . IF YES, PLEASE LIST: ____ . ANY NEW PROBLEMS WITH YOUR MEDICATIONS? NO . WHEN DID YOU LAST EAT? ____ . WHEN DID YOU LAST DRINK? ____ . WHAT DID YOU LAST DRINK? ____ . NAME OF PERSON DRIVING YOU HOME? ____ . DO YOU HAVE ANY OTHER QUESTIONS OR CONCERNS YES, FLU VACCINE 08/02/19 . VITAL SIGNS WT 139.6 LBS, HT 66 IN, BMI 22.53 INDEX, BP 133/61 MM HG, HR 72 /MIN, RR 18 /MIN, TEMP 97.5 F, OXYGEN SAT % 98%, NA INITIALS SC 13:55, REVIEWED BY: ALICJA. EXAMINATION GENERAL EXAMINATION: PATIENT IS ALERT O X 3 AND COOPERATIVE. LUNGS CLEAR, TO AUSCULTATION. HEART: NO MURMURS OR GALLOPS; FACIAL CRANIAL NERVES ARE GROSSLY NORMAL. GOOD SYMMETRY OF FACIAL MUSCLE MOVEMENT. NORMAL VISUAL ALLEN. PRESENCE OF BANDS OF TISSUE AND TRIGGER POINTS WITH RESTRICTION OF MOVEMENT OF THE LEFT NECK AND LEFT SHOULDER AREAS. PAIN INCREASES OVER THE CERVICAL FACET JOINTS WITH EXTENSION AND LATERAL ROTATION OF THE NECK, MAINLY ON THE RIGHT SIDE. TENDERNESS OVER THE PARASPINAL MUSCLE GROUP OF THE LOW BACK. MRI OF THE CERVICAL SPINE DONE ON 08/11/2018 SHOWS FACET ARTHROPATHY CHANGES. MRI OF THE THORACIC SPINE DONE ON 05/11/2019 SHOWS DISC PROTRUSION AT T6-T7 AND FACET ARTHROPATHY CHANGES. 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 COBB'S PAIN MANAGEMENT CASE. DUE TO THE TRIGGER POINTS, BANDS OF TISSUE, AND RESTRICTION OF MOVEMENT, I WOULD LIKE TO MOVE FORWARD WITH A NECK TRIGGER POINT INJECTION AT THIS TIME. WE DISCUSSED THE BENEFITS, RISKS, AND ALTERNATIVES OF THE INJECTION AND THE PATIENT WOULD LIKE TO PROCEED. DEPENDING ON THE TRIGGER POINT INJECTION RESULTS, I MAY PLAN TO DO DIAGNOSTIC FACET BLOCKS TO CONSIDER RADIOFREQUENCY OR A CERVICAL EPIDURAL IN THE FUTURE. THE PATIENT WILL FOLLOW UP IN SEVERAL WEEKS AFTER HER INJECTION. INSTRUCTIONS WERE GIVEN, QUESTIONS WERE ANSWERED, PATIENT REPORTS UNDERSTANDING AND AGREES WITH THE PLAN. I, TIMOTHY SCHILLING, DOCUMENTED THE ABOVE INFORMATION ACTING A SCRIBE FOR DR. MANZO. I HAVE REVIEWED THE ABOVE DOCUMENT, WRITTEN BY TIMOTHY SCHILLING SCRIBAster AND I VERIFY THAT IT IS ACCURATE. DEAR FREDY ENRIQUEZ M.D.: THANK YOU FOR YOUR KIND REFERRAL OF KVNG COBB. IF YOU WANT TO DISCUSS HER CASE WITH ME PLEASE CALL ME AT THE PAIN CENTER AT [phone]. SINCERELY, TRISTAN MANZO MD PAIN MEDICINE . PROCEDURE CODES G8427 CURRENT MEDS W/DOSAGES DOCUMENTED G8730 PAIN ASSESS POS TOOL F/U PLAN DOC FA211 ESTABILISHED PATIENT [facility] CHARGE DISPOSITION & COMMUNICATION FOLLOW UP REASON: TPI ELECTRONICALLY SIGNED BY TRISTAN MANZO MD, MD ON 08/25/2019 AT 06:47 PM EDT DISCLAIMER : THIS IS A VISIT SUMMARY EXTRACTED FROM THE [employer] CHART. IT IS NOT A COPY OF THE [employer] PROGRESS NOTE. MTDD
== END ==
LOC: M PAIN 14:00
PROVIDERS: ATTEND Anesthesiology
DX: M79.18 Myalgia, other site (principal); M54.2 Cervicalgia; M47.812 Spondylosis without myelopathy or radiculopathy, cervical region; M47.814 Spondylosis without myelopathy or radiculopathy, thoracic region; M54.6 Pain in thoracic spine; I10 Essential (primary) hypertension; Z79.82 Long term (current) use of aspirin; Z79.899 Other long term (current) drug therapy; Z88.8 Allergy status to other drugs, medicaments and biological substances; Z87.891 Personal history of nicotine dependence

== ENCOUNTER → 2019-10-19 | Outpatient (CLI) | payer OTHER ==
[~2019-10-19] MED LIST changes: +BUPIVACAINE HCL 0.25% 10 ML VIAL As Ordered ONE; +BUPIVACAINE HCL 0.25% 30 ML VIAL As Ordered ONE; +TRIAMCINOLONE ACETONIDE SUSP 40 MG/ML VIAL (J3301) As Ordered ONE; +diazePAM 5 MG TAB As Ordered ONE
--- NOTE | 2019-10-22 04:07 | ECWPNPC ---
PATIENT NAME: KVNG COBB : 1955 GENDER: FEMALE VISIT DATE: 10/19/2019 DISCHARGE DATE: 10/19/19 1050 VISIT LOCKED DATE TIME: PHYSICIAN: TRISTAN MANZO MD RESOURCE: TRISTAN MANZO MD REASON FOR APPOINTMENT 1. TPI HISTORY OF PRESENT ILLNESS HISTORY OF PRESENT ILLNESS: PAIN THE PATIENT DESCRIBES THE PAIN... FALL RISK SCREENING: SCREENING :NO FALLS REPORTED IN THE LAST YEAR CURRENT MEDICATIONS TAKING ZOLPIDEM TARTRATE ER 12.5 MG TABLET EXTENDED RELEASE 1 TABLET AT BEDTIME NEEDED ORALLY ONCE A DAY, NOTES: 10/18 2100 TAKING TIZANIDINE HCL 4 MG TABLET 1/2 TO 1 TABLET NEEDED ORALLY TWO TIMES A DAY PRN, NOTES: LAST WEEK TAKING LOSARTAN POTASSIUM 50 MG TABLET DIRECTED ORALLY , NOTES: 10/19 700 TAKING BUPROPION HCL ER (SR) 150 MG TABLET EXTENDED RELEASE 12 HOUR 1 TABLET IN THE MORNING ORALLY BID, NOTES: 10/19 700 TAKING VITAMIN D (ERGOCALCIFEROL) 54229 UNIT CAPSULE 1 CAPSULE ORALLY DAILY, NOTES: 10/17 TAKING ASPIR-LOW 81 MG TABLET DELAYED RELEASE 1 TABLET ORALLY ONCE A DAY, NOTES: 10/17 TAKING CARVEDILOL 3.125 MG TABLET DIRECTED ORALLY BID, NOTES: 10/19 700 TAKING AMLODIPINE BESYLATE 5 MG TABLET 1 TABLET ORALLY ONCE A DAY, NOTES: 10/17 TAKING HYDROCHLOROTHIAZIDE 25 MG TABLET 1 TABLET IN THE MORNING ORALLY ONCE A DAY, NOTES: 10/19 700 MEDICATION LIST REVIEWED AND RECONCILED WITH THE PATIENT PAST MEDICAL HISTORY HTN HEADACHES LEFT SUBCLAVIAN STEAL SYNDROME ANXIETY DEPRESSION INSOMNIA SLEEP APNEA IMPROVED AFTER TONSILLECTOMY CHRONIC NECK AND BACK PAIN DETACHED LEFT RETINA TEARING OF RIGHT RETINA ALLERGIES METHOCARBAMOL: RASH - ALLERGY SURGICAL HISTORY TONSILLECTOMY DETACHED RETINA REPAIR -LEFT LEFT SUBCLAVIAN STENT BILAT CATARACT SURGERY HYSTERECTOMY RIGHT MIDDLE FINGER TRIGGER FINGER REPAIR RETINAL TEAR RIGHT EYE REPAIR WITH LASER FAMILY HISTORY FATHER: ALIVE MOTHER: ALIVE 1 BROTHER(S) , 1 SISTER(S) . 1 SON(S) , 1 DAUGHTER(S) - HEALTHY. SOCIAL HISTORY GENERAL: TOBACCO USE ARE YOU A:FORMER SMOKER HOW LONG HAS IT BEEN SINCE YOU LAST SMOKED?> 10 YEARS PAIN CLINIC PFS, CLERGY, PUBLIC HEALTH REFERRALS HAS THE PATIENT BEEN EDUCATED REGARDING HIS/HER PLAN OF CARE?YES HAS THE PATIENT BEEN EDUCATED REGARDING PAIN, THE RISK FOR PAIN, THE IMPORTANCE OF EFFECTIVE PAIN MANAGEMENT, AND THE PAIN ASSESSMENT PROCESS?YES LATEX QUESTIONNAIRE LATEX ALLERGY : HAVE YOU EVER DEVELOPED ANY TYPE OF REACTION AFTER HANDLING LATEX PRODUCTS SUCH RUBBER GLOVES, CONDOMS, DIAPHRAGMS, BALLOONS, SOCKS, OR UNDERWEAR?NO LATEX ALLERGY : HAVE YOU EVER DEVELOPED ANY TYPE OF REACTION DURING OR AFTER DENTAL APPOINTMENT, VAGINAL/RECTAL EXAMINATION, SURGICAL PROCEDURE, OR ANY OTHER EXPOSURE?NO LATEX RISK : HAVE YOU EVER HAD ANY DIFFICULTY BREATHING OR HIVES AFTER EATING OR HANDLING ANY FRUITS, OR VEGETABLES; SUCH KIWI, BANANAS, STONE FRUITS, OR CHESTNUTSNO LATEX RISK : DO YOU HAVE A PREVIOUS PERSONAL HISTORY OF MORE THAN NINE SURGERIES, SPINA BIFIDA, OR REPEATED CATHERIZATIONS? NO LATEX RISK : ARE YOU FREQUENTLY EXPOSED TO LATEX PRODUCTS IN YOUR OCCUPATION?NO DATE ASKED : 10/10/2019 ADVANCE DIRECTIVE ADVANCE DIRECTIVE DISCUSSED WITH PATIENT:YES 10/19/19 PT DOES NOT HAVE ANY ADVANCED DIRECTVES AND SHE DECLINES INFORMATION ON HCP AT THIS TIME. AD SYNAGOGUE [id number] OTHER LANGUAGE LANGUAGES SPOKEN:SUDANESE RECREATIONAL DRUG USE DRUG USE?NO PT DENIES PATIENT DENIES ABUSE OR MISSUSED OF ANY MEDICATION. LEARNING BARRIERS / SPECIAL NEEDS BARRIERS TO LEARNING?NO HEARING IMPAIRED?NO VISION IMPAIRED?YES :CORRECTIVE LENSES COGNITIVELY IMPAIRED?NO READINESS TO LEARN?YES LEARNING PREFERENCES?NO LEARNING CAPABILITIES PRESENT?YES EMOTIONAL BARRIERS?NO SPECIAL DEVICES?NO REVIEWED WITH PATIENT 10/10/19 1235 BV10/19/19 0916 REVIEWED WITH PT. AD. HOSPITALIZATION/MAJOR DIAGNOSTIC PROCEDURE BLOOD PRESSURE/CHEST PRESSURE 04/2016 REVIEW OF SYSTEMS REVIEWED BY: PROVIDER: . CONSTITUTIONAL: ANY CHANGE IN YOUR MEDICAL CONDITION? NO . CHILLS NO . FEVER NO . INFECTION: DO YOU HAVE NEW INFECTIONS? NO . DO YOU HAVE HISTORY OF MRSA? NO . MUSCULOSKELETAL: ANY NEW PATTERNS OF PAIN OR NUMBNESS? NO . GASTROENTEROLOGY: ANY NEW CHANGE IN BOWEL CONTROL? NO . GENITOURINARY: ANY NEW CHANGE IN BLADDER CONTROL? NO . IS THERE A CHANCE YOU COULD BE ? NO . HEMATOLOGY/LYMPH: DO YOU TAKE ANY BLOOD THINNERS? (FOR EXAMPLE- COUMADIN, PLAVIX, AGGRENOX, PLATEL, PRADAXA, OR XARELTO) NO . WHEN WAS YOUR LAST DOSE? DATE: TIME: . NEUROLOGY: HAVE YOU FALLEN IN THE PAST 12 MONTHS? NO . ANY NEW EXTREMITY NUMBNESS OR WEAKNESS? NO . CARDIOLOGY: DO YOU HAVE A PACEMAKER OR DEFIBRILLATOR? NO . RESPIRATORY: HAVE YOU BEEN SICK IN THE PAST WEEK? NO . FEVER NO . FLU LIKE SYMPTOMS? NO . COUGH NO . INTEGUMENTARY: DO YOU HAVE ANY RASHES OR OPEN SORES? YES, COLD SORE RIGHT LOWER LIP. DR. MANZO AWARE . ALLERGIC/IMMUNO: ARE YOU ALLERGIC TO IV DYE? NO . ANY NEW ALLERGIES? NO . PSYCHIATRIC: DO YOU HAVE THOUGHTS OF HURTING YOURSELF OR SOMEONE ELSE? NO . ARE YOU ABUSED, NEGLECTED, OR IN AN UNSAFE ENVIRONMENT? NO . ENDOCRINOLOGY: ARE YOU DIABETIC? NO . OTHER: DO YOU NEED ANY PRESCRIPTIONS? NO . IF YES, PLEASE LIST: ____ . ANY NEW PROBLEMS WITH YOUR MEDICATIONS? NO . WHEN DID YOU LAST EAT? 10/18 0800 . WHEN DID YOU LAST DRINK? 10/19 0700 . WHAT DID YOU LAST DRINK? SIP OF WATER . NAME OF PERSON DRIVING YOU HOME? JORGE ARAUJO . DO YOU HAVE ANY OTHER QUESTIONS OR CONCERNS NO . VITAL SIGNS WT 141 LBS, HT 66 IN, BMI 22.76 INDEX, BP 142/76 MM HG, HR 72 /MIN, RR 18 /MIN, TEMP 96.9 F, OXYGEN SAT % 99%, SAFE IN ENV? (Y/N) Y, NA INITIALS KS 09:08, REVIEWED BY: REINIER. ASSESSMENTS MYALGIA, OTHER SITE - M79.18 (PRIMARY) PROCEDURES PN TRIGGER POINT INJECTION WITH STEROIDS PRE PROCEDURE DIAGNOSIS 1. MYALGIA 2. PAIN AT LEFT NECK AREA AND LEFT SHOULDER AREA. POST PROCEDURE DIAGNOSIS 1. MYALGIA 2. PAIN AT LEFT NECK AREA AND LEFT SHOULDER AREA. PROCEDURE TRIGGER POINT INJECTION AT LEFT NECK AREA AND LEFT SHOULDER AREA. SURGEON DR. TRISTAN MANZO [employer] DEVELOPER NONE ANESTHESIA LOCAL PRE PROCEDURE NOTE THE PATIENT HAS A HISTORY OF CHRONIC PAIN AT THE LEFT NECK AREA AND LEFT SHOULDER AREA. I EVALUATED THE PATIENT AND REVIEWED THE CHART. THERE IS EVIDENCE OF BANDS OF TISSUE WITH RESTRICTION OF MOVEMENT AND PRESENCE OF TRIGGER POINT AT THE AFFECTED AREA. I WENT OVER THE RISKS, ALTERNATIVES, AND BENEFITS ASSOCIATED WITH THIS PROCEDURE. THE PATIENT WOULD LIKE TO PROCEED AND GIVES CONSENT TO PERFORM THE PROCEDURE. THE PATIENT DENIES UNEXPLAINABLE WEIGHT LOSS, FEVER, CHILLS, OR NEW CHANGES IN URINARY OR BOWEL CONTROL DESCRIPTION OF PROCEDURE THE PATIENT WAS BROUGHT TO THE PROCEDURE ROOM AND PLACED IN THE SITTING POSITION. THE AREA WAS CLEANED WITH ALCOHOL. THE PROCEDURE WAS DONE USING ASEPTIC STERILE TECHNIQUE. I CHECKED LATERALITY AND THE LEVEL WHERE THE PROCEDURE WAS GOING TO BE PERFORMED WITH THE PATIENT AND THE SUPPORTING STAFF AT THE MOMENT OF THE TIME OUT IN THE PROCEDURE ROOM. USING A 25-GAUGE NEEDLE, TRIGGER POINTS WERE INJECTED AT THE LEFT NECK AREA AND LEFT SHOULDER AREA WITH A TOTAL OF 40 ML OF BUPIVACAINE 0.25% AND KENALOG 40 MG. THERE WAS NO EVIDENCE OF BLOOD, PARESTHESIA OR CEREBROSPINAL FLUID DURING THE PROCEDURE. THE PATIENT WAS SENT TO THE RECOVERY ROOM. THE PATIENT WAS MOVING THE EXTREMITIES AND DOING WELL. THERE WAS NO COMPLICATION DURING THE PROCEDURE POST PROCEDURE NOTE I AM LOOKING FOR LONG LASTING PAIN RELIEF WITH THIS INTERVENTION. THE PATIENT WILL BE SEEN IN A FOLLOW UP IN THE NEXT FEW WEEKS TO SEE HOW THE TRIGGER POINT INJECTION IS HELPING WITH HER PAIN. INSTRUCTIONS WERE GIVEN, QUESTIONS WERE ANSWERED, AND THE PATIENT EXPRESSED UNDERSTANDING AND AGREES WITH THE PLAN. I, TIMOTHY SCHILLING, DOCUMENTED THE ABOVE INFORMATION ACTING A SCRIBE FOR DR. MANZO. I HAVE REVIEWED THE ABOVE DOCUMENT, WRITTEN BY TIMOTHY OLMEDOIBAster AND I VERIFY THAT IT IS ACCURATE. PROCEDURE CODES 22444 INJ TRIGGER POINT / MUSCL DISPOSITION & COMMUNICATION FOLLOW UP 3 WEEKS ELECTRONICALLY SIGNED BY TRISTAN MANZO MD, MD ON 10/21/2019 AT 05:05 PM EST DISCLAIMER : THIS IS A VISIT SUMMARY EXTRACTED FROM THE [email or web address] CHART. IT IS NOT A COPY OF THE [employer] PROGRESS NOTE. MTDD
== END ==
LOC: M PAIN 09:00
PROVIDERS: ATTEND Anesthesiology
DX: M79.18 Myalgia, other site (principal); I10 Essential (primary) hypertension; Z86.59 Personal history of other mental and behavioral disorders; G47.00 Insomnia, unspecified; G47.30 Sleep apnea, unspecified; Z87.891 Personal history of nicotine dependence; Z88.8 Allergy status to other drugs, medicaments and biological substances; Z79.82 Long term (current) use of aspirin; Z79.899 Other long term (current) drug therapy
CPT/HCPCS: 20552; J3301

== ENCOUNTER → 2019-11-08 | Outpatient (CLI) | payer OTHER ==
[~2019-11-08] MED LIST changes: -BUPIVACAINE HCL 0.25% 10 ML VIAL As Ordered ONE; -BUPIVACAINE HCL 0.25% 30 ML VIAL As Ordered ONE; -TRIAMCINOLONE ACETONIDE SUSP 40 MG/ML VIAL (J3301) As Ordered ONE; -diazePAM 5 MG TAB As Ordered ONE
--- NOTE | 2019-11-22 07:26 | ECWPNPC ---
PATIENT NAME: KVNG COBB : 1955 GENDER: FEMALE VISIT DATE: 11/08/2019 DISCHARGE DATE: 11/08/19 1027 VISIT LOCKED DATE TIME: PHYSICIAN: TERE BENÍTEZ RESOURCE: TERE BENÍTEZ REASON FOR APPOINTMENT 1. POST TPI HISTORY OF PRESENT ILLNESS HISTORY OF PRESENT ILLNESS: 64-YEAR-OLD FEMALE HERE FOR POST PROCEDURE FOLLOW-UP. HAD TRIGGER POINTS TO LEFT NECK AND LEFT SHOULDER ON 10/19/19. REPORTING GREATER THAN 50% IMPROVEMENT IN PAIN WHICH CONTINUES TODAY. RATING LEFT NECK AND SHOULDER PAIN AT A LEVEL OF 1-2/10. REPORTS LONG HISTORY OF LEFT-SIDED NECK PAIN. DENIES PRECIPITATING EVENT.LONG HISTORY OF CHRONIC LOW BACK PAIN. REPORTING INCREASE IN BUTTOCK AND LOW BACK PAIN OVER THE PAST 2 WEEKS AFTER RIDING A STATIONARY BIKE ONE MONTH AGO. REVIEWED MRI OF THE CERVICAL AND LUMBOSACRAL SPINE. DISCUSSED TREATMENT OPTIONS. PAIN THE PATIENT DESCRIBES THE PAIN... FALL RISK SCREENING: SCREENING :NO FALLS REPORTED IN THE LAST YEAR CURRENT MEDICATIONS TAKING ZOLPIDEM TARTRATE ER 12.5 MG TABLET EXTENDED RELEASE 1 TABLET AT BEDTIME NEEDED ORALLY ONCE A DAY TAKING TIZANIDINE HCL 4 MG TABLET 1/2 TO 1 TABLET NEEDED ORALLY TWO TIMES A DAY PRN TAKING LOSARTAN POTASSIUM 50 MG TABLET DIRECTED ORALLY TAKING BUPROPION HCL ER (SR) 150 MG TABLET EXTENDED RELEASE 12 HOUR 1 TABLET IN THE MORNING ORALLY BID TAKING VITAMIN D (ERGOCALCIFEROL) 52027 UNIT CAPSULE 1 CAPSULE ORALLY DAILY TAKING ASPIR-LOW 81 MG TABLET DELAYED RELEASE 1 TABLET ORALLY ONCE A DAY TAKING CARVEDILOL 3.125 MG TABLET DIRECTED ORALLY BID TAKING AMLODIPINE BESYLATE 5 MG TABLET 1 TABLET ORALLY ONCE A DAY TAKING HYDROCHLOROTHIAZIDE 25 MG TABLET 1 TABLET IN THE MORNING ORALLY ONCE A DAY PAST MEDICAL HISTORY HTN HEADACHES LEFT SUBCLAVIAN STEAL SYNDROME ANXIETY DEPRESSION INSOMNIA SLEEP APNEA IMPROVED AFTER TONSILLECTOMY CHRONIC NECK AND BACK PAIN DETACHED LEFT RETINA TEARING OF RIGHT RETINA ALLERGIES METHOCARBAMOL: RASH - ALLERGY SURGICAL HISTORY TONSILLECTOMY DETACHED RETINA REPAIR -LEFT LEFT SUBCLAVIAN STENT BILAT CATARACT SURGERY HYSTERECTOMY RIGHT MIDDLE FINGER TRIGGER FINGER REPAIR RETINAL TEAR RIGHT EYE REPAIR WITH LASER FAMILY HISTORY FATHER: ALIVE MOTHER: ALIVE 1 BROTHER(S) , 1 SISTER(S) . 1 SON(S) , 1 DAUGHTER(S) - HEALTHY. SOCIAL HISTORY GENERAL: TOBACCO USE ARE YOU A:FORMER SMOKER HOW LONG HAS IT BEEN SINCE YOU LAST SMOKED?> 10 YEARS PAIN CLINIC PFS, CLERGY, PUBLIC HEALTH REFERRALS HAS THE PATIENT BEEN EDUCATED REGARDING HIS/HER PLAN OF CARE?YES HAS THE PATIENT BEEN EDUCATED REGARDING PAIN, THE RISK FOR PAIN, THE IMPORTANCE OF EFFECTIVE PAIN MANAGEMENT, AND THE PAIN ASSESSMENT PROCESS?YES LATEX QUESTIONNAIRE LATEX ALLERGY : HAVE YOU EVER DEVELOPED ANY TYPE OF REACTION AFTER HANDLING LATEX PRODUCTS SUCH RUBBER GLOVES, CONDOMS, DIAPHRAGMS, BALLOONS, SOCKS, OR UNDERWEAR?NO LATEX ALLERGY : HAVE YOU EVER DEVELOPED ANY TYPE OF REACTION DURING OR AFTER DENTAL APPOINTMENT, VAGINAL/RECTAL EXAMINATION, SURGICAL PROCEDURE, OR ANY OTHER EXPOSURE?NO DATE ASKED : 10/10/2019 LATEX RISK : HAVE YOU EVER HAD ANY DIFFICULTY BREATHING OR HIVES AFTER EATING OR HANDLING ANY FRUITS, OR VEGETABLES; SUCH KIWI, BANANAS, STONE FRUITS, OR CHESTNUTSNO LATEX RISK : DO YOU HAVE A PREVIOUS PERSONAL HISTORY OF MORE THAN NINE SURGERIES, SPINA BIFIDA, OR REPEATED CATHERIZATIONS? NO LATEX RISK : ARE YOU FREQUENTLY EXPOSED TO LATEX PRODUCTS IN YOUR OCCUPATION?NO ADVANCE DIRECTIVE ADVANCE DIRECTIVE DISCUSSED WITH PATIENT:YES 10/19/19 PT DOES NOT HAVE ANY ADVANCED DIRECTVES AND SHE DECLINES INFORMATION ON HCP AT THIS TIME. AD JEHOVAH'S WITNESS [id number] OTHER LANGUAGE LANGUAGES SPOKEN:URDU RECREATIONAL DRUG USE DRUG USE?NO PT DENIES PATIENT DENIES ABUSE OR MISSUSED OF ANY MEDICATION. LEARNING BARRIERS / SPECIAL NEEDS BARRIERS TO LEARNING?NO HEARING IMPAIRED?NO VISION IMPAIRED?YES COGNITIVELY IMPAIRED?NO :CORRECTIVE LENSES READINESS TO LEARN?YES LEARNING PREFERENCES?NO LEARNING CAPABILITIES PRESENT?YES EMOTIONAL BARRIERS?NO SPECIAL DEVICES?NO REVIEWED WITH PATIENT 10/10/19 1235 BV10/19/19 0916 REVIEWED WITH PT. AD. HOSPITALIZATION/MAJOR DIAGNOSTIC PROCEDURE BLOOD PRESSURE/CHEST PRESSURE 04/2016 REVIEW OF SYSTEMS REVIEWED BY: PROVIDER: TERE HUNT . CONSTITUTIONAL: ANY CHANGE IN YOUR MEDICAL CONDITION? NO . CHILLS NO . FEVER NO . INFECTION: DO YOU HAVE NEW INFECTIONS? NO . DO YOU HAVE HISTORY OF MRSA? NO . MUSCULOSKELETAL: ANY NEW PATTERNS OF PAIN OR NUMBNESS? NO . GASTROENTEROLOGY: ANY NEW CHANGE IN BOWEL CONTROL? NO . GENITOURINARY: ANY NEW CHANGE IN BLADDER CONTROL? NO . IS THERE A CHANCE YOU COULD BE ? NO . HEMATOLOGY/LYMPH: DO YOU TAKE ANY BLOOD THINNERS? (FOR EXAMPLE- COUMADIN, PLAVIX, AGGRENOX, PLATEL, PRADAXA, OR XARELTO) NO . WHEN WAS YOUR LAST DOSE? DATE: TIME: . NEUROLOGY: HAVE YOU FALLEN IN THE PAST 12 MONTHS? NO . ANY NEW EXTREMITY NUMBNESS OR WEAKNESS? NO . CARDIOLOGY: DO YOU HAVE A PACEMAKER OR DEFIBRILLATOR? NO . RESPIRATORY: HAVE YOU BEEN SICK IN THE PAST WEEK? NO . FEVER NO . FLU LIKE SYMPTOMS? NO . COUGH NO . INTEGUMENTARY: DO YOU HAVE ANY RASHES OR OPEN SORES? NO . ALLERGIC/IMMUNO: ARE YOU ALLERGIC TO IV DYE? NO . ANY NEW ALLERGIES? NO . PSYCHIATRIC: DO YOU HAVE THOUGHTS OF HURTING YOURSELF OR SOMEONE ELSE? NO . ARE YOU ABUSED, NEGLECTED, OR IN AN UNSAFE ENVIRONMENT? NO . ENDOCRINOLOGY: ARE YOU DIABETIC? NO . OTHER: DO YOU NEED ANY PRESCRIPTIONS? NO . IF YES, PLEASE LIST: ____ . ANY NEW PROBLEMS WITH YOUR MEDICATIONS? NO . WHEN DID YOU LAST EAT? ____ . WHEN DID YOU LAST DRINK? ____ . WHAT DID YOU LAST DRINK? ____ . NAME OF PERSON DRIVING YOU HOME? ____ . DO YOU HAVE ANY OTHER QUESTIONS OR CONCERNS NO . VITAL SIGNS WT 142.6 LBS, HT 66 IN, BMI 23.01 INDEX, BP 156/81 MM HG, HR 67 /MIN, RR 18 /MIN, TEMP 97.5 F, OXYGEN SAT % 100%, NA INITIALS AW 0913, REVIEWED BY: BUNNY. EXAMINATION GENERAL EXAMINATION: GENERALNO ACUTE DISTRESS, WELL NOURISHED AND HYDRATED. PSYCHAPPROPRIATE MOOD AND AFFECT . LUNGS:CLEAR TO AUSCULTATION BILATERALLY, NO WHEEZES, RHONCHI, RALES. HEART:NO MURMURS, REGULAR RATE AND RHYTHM. MUSCULOSKELETAL: PALPATION: NEGATIVE FOR PAIN OVER L/S SPINE. NEGATIVE FOR PAIN OVER L/S PARSPINALS. CERVICALMILD TENDERNESS NOTED OVER LEFT TRAPEZIUS . FULL RANGE OF MOTION, JOINT MOTION OF THE NECK WITHOUT INCREASE IN PAIN. . DIAGNOSTIC TESTS REVIEWEDMRI OF THE LS SPINE DATED 05/11/2019 MRI OF THE THORACIC SPINE DATED 05/11/2019 MRI OF THE CERVICAL SPINE DATED 08/11/2018 . ASSESSMENTS CERVICALGIA - M54.2 (PRIMARY) MYALGIA, OTHER SITE - M79.18 TREATMENT CERVICALGIA NOTES: PT 2XWK X6 WKS CERVICAL SPINE. PROCEDURE CODES [id number] ESTABILISHED PATIENT [facility] CHARGE DISPOSITION & COMMUNICATION FOLLOW UP 2 MONTHS (REASON: NECK PAIN AFTER PT) ELECTRONICALLY SIGNED BY MARILEE GAONA ON 11/21/2019 AT 03:31 PM EST DISCLAIMER : THIS IS A VISIT SUMMARY EXTRACTED FROM THE [employer] CHART. IT IS NOT A COPY OF THE [employer] PROGRESS NOTE. LELE
== END ==
LOC: M PAIN 09:00
PROVIDERS: ATTEND Nurse Practitioner Family
DX: M54.2 Cervicalgia (principal); M79.18 Myalgia, other site

== ENCOUNTER → 2020-01-05 | Outpatient (CLI) | payer OTHER ==
--- NOTE | 2020-01-07 06:24 | ECWPNPC ---
PATIENT NAME: KVNG COBB : 1955 GENDER: FEMALE VISIT DATE: 01/05/2020 DISCHARGE DATE: 01/05/20 1052 VISIT LOCKED DATE TIME: PHYSICIAN: TERE BENÍTEZ RESOURCE: TERE BENÍTEZ REASON FOR APPOINTMENT 1. NECK PAIN HISTORY OF PRESENT ILLNESS HISTORY OF PRESENT ILLNESS: HERE FOR FOLLOW-UP OF CHRONIC NECK AND LOW BACK PAIN. HAS BEEN ATTENDING PHYSICAL THERAPY. HAS FOUND PHYSICAL THERAPY HELPFUL OVER THE PAST FEW WEEKS. COMPLAINING OF BILATERAL ISCHIAL TUBEROSITY PAIN THAT BEGAN ABOUT A MONTH AGO. THIS OCCURS WHEN SITTING. DENIES PRECIPITATING EVENT. RATING PAIN LEVEL 0-3/10 VAS. PAIN THE PATIENT DESCRIBES THE PAIN... FALL RISK SCREENING: SCREENING :NO FALLS REPORTED IN THE LAST YEAR CURRENT MEDICATIONS TAKING ZOLPIDEM TARTRATE ER 12.5 MG TABLET EXTENDED RELEASE 1 TABLET AT BEDTIME NEEDED ORALLY ONCE A DAY TAKING TIZANIDINE HCL 4 MG TABLET 1/2 TO 1 TABLET NEEDED ORALLY TWO TIMES A DAY PRN TAKING LOSARTAN POTASSIUM 50 MG TABLET DIRECTED ORALLY TAKING BUPROPION HCL ER (SR) 150 MG TABLET EXTENDED RELEASE 12 HOUR 1 TABLET IN THE MORNING ORALLY BID TAKING VITAMIN D (ERGOCALCIFEROL) 50 MCG (1999) CAPSULE 1 CAPSULE ORALLY DAILY TAKING ASPIR-LOW 81 MG TABLET DELAYED RELEASE 1 TABLET ORALLY ONCE A DAY TAKING CARVEDILOL 3.125 MG TABLET DIRECTED ORALLY BID TAKING AMLODIPINE BESYLATE 5 MG TABLET 1 TABLET ORALLY ONCE A DAY TAKING HYDROCHLOROTHIAZIDE 25 MG TABLET 1 TABLET IN THE MORNING ORALLY ONCE A DAY MEDICATION LIST REVIEWED AND RECONCILED WITH THE PATIENT PAST MEDICAL HISTORY HTN HEADACHES LEFT SUBCLAVIAN STEAL SYNDROME ANXIETY DEPRESSION INSOMNIA SLEEP APNEA IMPROVED AFTER TONSILLECTOMY CHRONIC NECK AND BACK PAIN DETACHED LEFT RETINA TEARING OF RIGHT RETINA ALLERGIES METHOCARBAMOL: RASH - ALLERGY SURGICAL HISTORY TONSILLECTOMY DETACHED RETINA REPAIR -LEFT LEFT SUBCLAVIAN STENT BILAT CATARACT SURGERY HYSTERECTOMY RIGHT MIDDLE FINGER TRIGGER FINGER REPAIR RETINAL TEAR RIGHT EYE REPAIR WITH LASER FAMILY HISTORY FATHER: ALIVE MOTHER: ALIVE 1 BROTHER(S) , 1 SISTER(S) . 1 SON(S) , 1 DAUGHTER(S) - HEALTHY. SOCIAL HISTORY GENERAL: TOBACCO USE ARE YOU A:FORMER SMOKER HOW LONG HAS IT BEEN SINCE YOU LAST SMOKED?> 10 YEARS PAIN CLINIC PFS, CLERGY, PUBLIC HEALTH REFERRALS HAS THE PATIENT BEEN EDUCATED REGARDING HIS/HER PLAN OF CARE?YES HAS THE PATIENT BEEN EDUCATED REGARDING PAIN, THE RISK FOR PAIN, THE IMPORTANCE OF EFFECTIVE PAIN MANAGEMENT, AND THE PAIN ASSESSMENT PROCESS?YES LATEX QUESTIONNAIRE LATEX ALLERGY : HAVE YOU EVER DEVELOPED ANY TYPE OF REACTION AFTER HANDLING LATEX PRODUCTS SUCH RUBBER GLOVES, CONDOMS, DIAPHRAGMS, BALLOONS, SOCKS, OR UNDERWEAR?NO LATEX ALLERGY : HAVE YOU EVER DEVELOPED ANY TYPE OF REACTION DURING OR AFTER DENTAL APPOINTMENT, VAGINAL/RECTAL EXAMINATION, SURGICAL PROCEDURE, OR ANY OTHER EXPOSURE?NO LATEX RISK : HAVE YOU EVER HAD ANY DIFFICULTY BREATHING OR HIVES AFTER EATING OR HANDLING ANY FRUITS, OR VEGETABLES; SUCH KIWI, BANANAS, STONE FRUITS, OR CHESTNUTSNO LATEX RISK : DO YOU HAVE A PREVIOUS PERSONAL HISTORY OF MORE THAN NINE SURGERIES, SPINA BIFIDA, OR REPEATED CATHERIZATIONS? NO LATEX RISK : ARE YOU FREQUENTLY EXPOSED TO LATEX PRODUCTS IN YOUR OCCUPATION?NO DATE ASKED : 10/10/2019 ADVANCE DIRECTIVE ADVANCE DIRECTIVE DISCUSSED WITH PATIENT:YES 01/05/2020 PT DOES NOT HAVE ANY ADVANCED DIRECTVES - HCP INFORMATION GIVEN AT THIS TIME, PATIENT DECLINES ASSISTANCE IN FILLING OUT THE FORM. JS PENTECOSTALISM [id number] OTHER LANGUAGE LANGUAGES SPOKEN:[place] ALCOHOL SCREENING DID YOU HAVE A DRINK CONTAINING ALCOHOL IN THE PAST YEAR?YES HOW OFTEN DID YOU HAVE A DRINK CONTAINING ALCOHOL IN THE PAST YEAR?MONTHLY OR LESS (1 POINT) HOW MANY DRINKS DID YOU HAVE ON A TYPICAL DAY WHEN YOU WERE DRINKING IN THE PAST YEAR?1 OR 2 (0 POINTS) HOW OFTEN DID YOU HAVE SIX OR MORE DRINKS ON ONE OCCASION IN THE PAST YEAR?NEVER (0 POINTS) POINTS1 INTERPRETATIONNEGATIVE RECREATIONAL DRUG USE DRUG USE?NO PT DENIES PATIENT DENIES ABUSE OR MISSUSED OF ANY MEDICATION. LEARNING BARRIERS / SPECIAL NEEDS BARRIERS TO LEARNING?NO HEARING IMPAIRED?NO VISION IMPAIRED?YES COGNITIVELY IMPAIRED?NO :CORRECTIVE LENSES READINESS TO LEARN?YES LEARNING PREFERENCES?NO LEARNING CAPABILITIES PRESENT?YES EMOTIONAL BARRIERS?NO SPECIAL DEVICES?NO HOSPITALIZATION/MAJOR DIAGNOSTIC PROCEDURE BLOOD PRESSURE/CHEST PRESSURE 04/2016 REVIEW OF SYSTEMS REVIEWED BY: PROVIDER: TERE HUNT . CONSTITUTIONAL: ANY CHANGE IN YOUR MEDICAL CONDITION? NO . CHILLS NO . FEVER NO . INFECTION: DO YOU HAVE NEW INFECTIONS? NO . DO YOU HAVE HISTORY OF MRSA? NO . MUSCULOSKELETAL: ANY NEW PATTERNS OF PAIN OR NUMBNESS? YES, STATES PAIN IMPROVED SINCE INJECTIONS . GASTROENTEROLOGY: ANY NEW CHANGE IN BOWEL CONTROL? NO . GENITOURINARY: ANY NEW CHANGE IN BLADDER CONTROL? NO . IS THERE A CHANCE YOU COULD BE ? NO . HEMATOLOGY/LYMPH: DO YOU TAKE ANY BLOOD THINNERS? (FOR EXAMPLE- COUMADIN, PLAVIX, AGGRENOX, PLATEL, PRADAXA, OR XARELTO) NO . WHEN WAS YOUR LAST DOSE? DATE: TIME: . NEUROLOGY: HAVE YOU FALLEN IN THE PAST 12 MONTHS? NO . ANY NEW EXTREMITY NUMBNESS OR WEAKNESS? NO . CARDIOLOGY: DO YOU HAVE A PACEMAKER OR DEFIBRILLATOR? NO . RESPIRATORY: HAVE YOU BEEN SICK IN THE PAST WEEK? NO . FEVER NO . FLU LIKE SYMPTOMS? NO . COUGH NO . INTEGUMENTARY: DO YOU HAVE ANY RASHES OR OPEN SORES? NO . ALLERGIC/IMMUNO: ARE YOU ALLERGIC TO IV DYE? NO . ANY NEW ALLERGIES? NO . PSYCHIATRIC: DO YOU HAVE THOUGHTS OF HURTING YOURSELF OR SOMEONE ELSE? NO . ARE YOU ABUSED, NEGLECTED, OR IN AN UNSAFE ENVIRONMENT? NO . ENDOCRINOLOGY: ARE YOU DIABETIC? NO . OTHER: DO YOU NEED ANY PRESCRIPTIONS? NO . IF YES, PLEASE LIST: ____ . ANY NEW PROBLEMS WITH YOUR MEDICATIONS? NO . WHEN DID YOU LAST EAT? ____ . WHEN DID YOU LAST DRINK? ____ . WHAT DID YOU LAST DRINK? ____ . NAME OF PERSON DRIVING YOU HOME? ____ . DO YOU HAVE ANY OTHER QUESTIONS OR CONCERNS NO . VITAL SIGNS WT 148.4 LBS, HT 66 IN, BMI 23.95 INDEX, BP 148/67 MM HG, HR 63 /MIN, RR 18 /MIN, TEMP 97.2 F, OXYGEN SAT % 99%, SAFE IN ENV? (Y/N) YES, NA INITIALS AW 1012, REVIEWED BY: JULIO CESAR. EXAMINATION GENERAL EXAMINATION: GENERAL AWAKE,ALERT ,PLEASANT . PSYCH AFFECT NORMAL . LUNGS: LUNG ALLEN ARE CLEAR TO AUSCULTATION BILATERALLY. GOOD MOVEMENT OF AIR . HEART: S1, S2 IN A REGULAR RATE AND RHYTHM. NO SIGNIFICANT MURMURS, RUBS OR GALLOPS NOTED . BACK: NON TENDER OVER BILATERAL SIJ. ASSESSMENTS SPONDYLOSIS WITHOUT MYELOPATHY OR RADICULOPATHY, CERVICAL REGION - M47.812 (PRIMARY) MYALGIA, OTHER SITE - M79.18 TREATMENT SPONDYLOSIS WITHOUT MYELOPATHY OR RADICULOPATHY, CERVICAL REGION NOTES: CONTINUE HOME EXERCISE/PT. PROCEDURE CODES FA211 ESTABILISHED PATIENT [facility] CHARGE DISPOSITION & COMMUNICATION FOLLOW UP 3 MONTHS ELECTRONICALLY SIGNED BY MARILEE GAONA ON 01/06/2020 AT 09:44 AM EST DISCLAIMER : THIS IS A VISIT SUMMARY EXTRACTED FROM THE [employer] CHART. IT IS NOT A COPY OF THE [employer] PROGRESS NOTE. LELE
== END ==
LOC: M PAIN 09:45
PROVIDERS: ATTEND Nurse Practitioner Family
DX: M47.812 Spondylosis without myelopathy or radiculopathy, cervical region (principal); M79.18 Myalgia, other site; I10 Essential (primary) hypertension; Z86.59 Personal history of other mental and behavioral disorders; G47.00 Insomnia, unspecified; G47.30 Sleep apnea, unspecified; Z87.891 Personal history of nicotine dependence; Z88.8 Allergy status to other drugs, medicaments and biological substances; Z79.82 Long term (current) use of aspirin; Z79.899 Other long term (current) drug therapy

== ENCOUNTER → 2020-01-12 | Outpatient (CLI) | payer OTHER ==
--- NOTE | 2020-01-13 08:24 | REP ---
Clinical: History of left subclavian artery stenosis with stent. Technique: Real time michelle scale and color Doppler evaluation using curved array transducer. Findings: Ultrasound examination demonstrates relatively normal triphasic and biphasic arterial wave patterns through the subclavian, axillary, brachial, ulnar and radial arteries without evidence for stenosis or occlusion. Velocity (cm/sec) Subclavian artery (proximal) 167.2 triphasic Subclavian artery (distal) 117.2 triphasic Axillary artery 83.6 triphasic Brachial artery (proximal) 106.0 triphasic Brachial artery (mid) 105.4 triphasic Brachial artery (distal) 72.2 triphasic Ulnar artery (proximal) 68.2 triphasic Ulnar artery (distal) 23.3 biphasic Radial artery (proximal) 53.6 triphasic Radial artery (distal) 57.6 biphasic Impression: Patent subclavian arterial stent. Electronically Signed by Greyson Zheng MD 01/13/2020 08:16 A
== END ==
LOC: M RAD 12:44
PROVIDERS: ATTEND Surgery
DX: I77.1 Stricture of artery (principal)

== ENCOUNTER → 2020-04-06 | Outpatient (CLI) | payer OTHER ==
[~2020-04-06] MED LIST changes: -ZOLP12.515 PO; +ZOLP12.518 PO
--- NOTE | 2020-04-10 07:06 | ECWPNPC ---
PATIENT NAME: KVNG COBB : 1955 GENDER: FEMALE VISIT DATE: 04/06/2020 DISCHARGE DATE: 04/06/20 1206 VISIT LOCKED DATE TIME: PHYSICIAN: TERE BENÍTEZ RESOURCE: TERE BENÍTEZ REASON FOR APPOINTMENT 1. NECK PAIN; [phone] PAT DONE HISTORY OF PRESENT ILLNESS GENERAL: PATIENT IS AGREEABLE TO TELEMED VISIT VIA ZOOM. THIS IS A FOLLOW-UP OF CHRONIC NECK PAIN. HAS RESPONDED WELL TO TRIGGER POINT INJECTIONS AND PHYSICAL THERAPY. CONTINUES WITH ONE SPECIFIC AREA IN THE LEFT NECK THAT IS BOTHERSOME, ESPECIALLY WITH RANGE OF JOINT MOTION OF THE NECK. DISCUSSED TRIGGER POINT INJECTION IN THAT REGION.-. FALL RISK SCREENING: SCREENING :NO FALLS REPORTED IN THE LAST YEAR PAIN SCREENING: PATIENT HAS A COMPLAINT OF ACUTE OR CHRONIC PAIN :YES LOCATION OF PAIN:NECK, LEFT SHOULDER, LOW BACK INTENSITY OF PAIN (SCALE OF 1 TO 10):2 WHAT DOES YOUR PAIN FEEL LIKE:ACHING, INTERMITTENT DURATION:PERIODIC PAIN IS INCREASED BY:OTHERS CERTAIN POSITIONS, SITTING PAIN IS DECREASED BY:USE OF PAIN MEDICATIONS NURSING NOTE: -. PAIN CENTER INTAKE QUESTIONS: DO YOU HAVE A HISTORY OF MRSA? :NO DO YOU TAKE A BLOOD THINNERS? :NO DO YOU HAVE ANY BLEEDING DISORDERS? :NO ANY NEW NUMBNESS OR WEAKNESS IN YOUR LEGS OR ARMS? :YES PT STATES THAT SHE HAS A PAIN IN HER LEFT BUTTOCK, CONTINUING TO BECOME MORE PAINFUL ANY PACEMAKER,DEFIBRILLATOR, OR DORSAL COLUMN STIMULATOR? :NO DO YOU HAVE ANY RASHES OR OPEN SORES? :NO ARE YOU ALLERGIC TO IV DYE? :NO ARE YOU DIABETIC? :NO ANY NEW PROBLEMS WITH YOUR MEDICATIONS? :NO HAVE YOU RECEIVED A VACCINE IN THE PAST 30 DAYS? :NO DO YOU PLAN TO RECEIVE A VACCINE IN THE NEXT 21 DAYS? :NO DO YOU NEED ANY PRESCRIPTION? :NO DO YOU TAKE ANY IMMUNOSUPPRESSIVE MEDICATIONS? :NO CURRENT MEDICATIONS TAKING ZOLPIDEM TARTRATE ER 12.5 MG TABLET EXTENDED RELEASE 1 TABLET AT BEDTIME NEEDED ORALLY ONCE A DAY TAKING TIZANIDINE HCL 4 MG TABLET 1/2 TO 1 TABLET NEEDED ORALLY TWO TIMES A DAY PRN TAKING LOSARTAN POTASSIUM 50 MG TABLET DIRECTED ORALLY TAKING BUPROPION HCL ER (SR) 150 MG TABLET EXTENDED RELEASE 12 HOUR 1 TABLET IN THE MORNING ORALLY BID TAKING VITAMIN D (ERGOCALCIFEROL) 50 MCG (1999) CAPSULE 1 CAPSULE ORALLY DAILY TAKING ASPIR-LOW 81 MG TABLET DELAYED RELEASE 1 TABLET ORALLY ONCE A DAY TAKING CARVEDILOL 3.125 MG TABLET DIRECTED ORALLY BID TAKING AMLODIPINE BESYLATE 5 MG TABLET 1 TABLET ORALLY ONCE A DAY TAKING HYDROCHLOROTHIAZIDE 25 MG TABLET 1 TABLET IN THE MORNING ORALLY ONCE A DAY MEDICATION LIST REVIEWED AND RECONCILED WITH THE PATIENT PAST MEDICAL HISTORY HTN HEADACHES LEFT SUBCLAVIAN STEAL SYNDROME ANXIETY DEPRESSION INSOMNIA SLEEP APNEA IMPROVED AFTER TONSILLECTOMY CHRONIC NECK AND BACK PAIN DETACHED LEFT RETINA TEARING OF RIGHT RETINA ALLERGIES METHOCARBAMOL: RASH - ALLERGY SURGICAL HISTORY TONSILLECTOMY DETACHED RETINA REPAIR -LEFT LEFT SUBCLAVIAN STENT BILAT CATARACT SURGERY HYSTERECTOMY RIGHT MIDDLE FINGER TRIGGER FINGER REPAIR RETINAL TEAR RIGHT EYE REPAIR WITH LASER FAMILY HISTORY FATHER: ALIVE MOTHER: ALIVE 1 BROTHER(S) , 1 SISTER(S) . 1 SON(S) , 1 DAUGHTER(S) - HEALTHY. SOCIAL HISTORY GENERAL: TOBACCO USE ARE YOU A:FORMER SMOKER HOW LONG HAS IT BEEN SINCE YOU LAST SMOKED?> 10 YEARS LATEX QUESTIONNAIRE LATEX ALLERGY : HAVE YOU EVER DEVELOPED ANY TYPE OF REACTION AFTER HANDLING LATEX PRODUCTS SUCH RUBBER GLOVES, CONDOMS, DIAPHRAGMS, BALLOONS, SOCKS, OR UNDERWEAR?NO LATEX ALLERGY : HAVE YOU EVER DEVELOPED ANY TYPE OF REACTION DURING OR AFTER DENTAL APPOINTMENT, VAGINAL/RECTAL EXAMINATION, SURGICAL PROCEDURE, OR ANY OTHER EXPOSURE?NO LATEX RISK : HAVE YOU EVER HAD ANY DIFFICULTY BREATHING OR HIVES AFTER EATING OR HANDLING ANY FRUITS, OR VEGETABLES; SUCH KIWI, BANANAS, STONE FRUITS, OR CHESTNUTSNO LATEX RISK : DO YOU HAVE A PREVIOUS PERSONAL HISTORY OF MORE THAN NINE SURGERIES, SPINA BIFIDA, OR REPEATED CATHERIZATIONS? NO LATEX RISK : ARE YOU FREQUENTLY EXPOSED TO LATEX PRODUCTS IN YOUR OCCUPATION?NO DATE ASKED : 04/05/2020 ALCOHOL SCREENING DID YOU HAVE A DRINK CONTAINING ALCOHOL IN THE PAST YEAR?YES HOW OFTEN DID YOU HAVE SIX OR MORE DRINKS ON ONE OCCASION IN THE PAST YEAR?NEVER (0 POINTS) HOW MANY DRINKS DID YOU HAVE ON A TYPICAL DAY WHEN YOU WERE DRINKING IN THE PAST YEAR?1 OR 2 (0 POINTS) HOW OFTEN DID YOU HAVE A DRINK CONTAINING ALCOHOL IN THE PAST YEAR?MONTHLY OR LESS (1 POINT) POINTS1 INTERPRETATIONNEGATIVE RECREATIONAL DRUG USE DRUG USE?NO PT DENIES PATIENT DENIES ABUSE OR MISSUSED OF ANY MEDICATION. CONGREGATION [id number] OTHER LANGUAGE LANGUAGES SPOKEN:TURKISH LEARNING BARRIERS / SPECIAL NEEDS BARRIERS TO LEARNING?NO HEARING IMPAIRED?NO VISION IMPAIRED?YES COGNITIVELY IMPAIRED?NO :CORRECTIVE LENSES READINESS TO LEARN?YES LEARNING PREFERENCES?NO LEARNING CAPABILITIES PRESENT?YES EMOTIONAL BARRIERS?NO SPECIAL DEVICES?NO PAIN CLINIC PFS, CLERGY, PUBLIC HEALTH REFERRALS HAS THE PATIENT BEEN EDUCATED REGARDING HIS/HER PLAN OF CARE?YES HAS THE PATIENT BEEN EDUCATED REGARDING PAIN, THE RISK FOR PAIN, THE IMPORTANCE OF EFFECTIVE PAIN MANAGEMENT, AND THE PAIN ASSESSMENT PROCESS?YES ADVANCE DIRECTIVE ADVANCE DIRECTIVE DISCUSSED WITH PATIENT:YES PT DOES NOT HAVE ANY ADVANCED DIRECTVES - HCP INFORMATION GIVEN AT THIS TIME, PATIENT DECLINES ASSISTANCE IN FILLING OUT THE FORM. HOSPITALIZATION/MAJOR DIAGNOSTIC PROCEDURE BLOOD PRESSURE/CHEST PRESSURE 04/2016 REVIEW OF SYSTEMS CONSTITUTIONAL: ANY RECENT FEVER OR ILLNESS NO . CHILLS NO . GASTROENTEROLOGY: BOWEL INCONTINENCE NO . ANY NEW CHANGE IN BOWEL CONTROL? NO . ABDOMINAL PAIN NO . CONSTIPATION NO . GENITOURINARY: ANY NEW CHANGE IN BLADDER CONTROL? NO . IS THERE A CHANCE YOU COULD BE ? NO . URINARY INCONTINENCE NO . CARDIOLOGY: CHEST PRESSURE NO . CHEST PAIN NO . RESPIRATORY: COUGH NO . SHORTNESS OF BREATH NO . EXAMINATION GENERAL EXAMINATION: GENERALNO ACUTE DISTRESS, WELL NOURISHED AND HYDRATED. PSYCHAPPROPRIATE MOOD AND AFFECT . FACE:UNREMARKABLE. GENERAL: VIRTUAL EXAM: PATIENT DEMONSTRATES PAIN AND TIGHTNESS OVER THE LEFT TRAPEZIUS WITH PALPATION. REPORTS INCREASED PAIN IN THIS REGION WITH RANGE OF JOINT MOTION OF THE NECK. ASSESSMENTS MYALGIA, OTHER SITE - M79.18 (PRIMARY) CERVICALGIA - M54.2 TREATMENT MYALGIA, OTHER SITE NOTES: REVIEWED POTENTIAL RISK OF STEROID USE AND THE FACT THAT IT WOULD LOWER HER IMMUNE STATUS FOR 1 WEEK APPROXIMATELY POST PROCEDURE. PATIENT IS OPTING TO USE STEROID MEDICATION DESPITE THE RISK. TRIGGER POINT INJECTION, LEFT NECK WITH STEROID. FOLLOW-UP POSTPROCEDURE. CONTINUE HOME STRETCHING. TOTAL TIME SPENT DURING TELEMED VISIT WAS APPROXIMATELY 15 MINUTES. DISPOSITION & COMMUNICATION FOLLOW UP POST (REASON: TRIGGER POINT INJECTION, LEFT NECK WITH STEROID) ELECTRONICALLY SIGNED BY MARILEE GAONA ON 04/09/2020 AT 03:15 PM EDT DISCLAIMER : THIS IS A VISIT SUMMARY EXTRACTED FROM THE [employer] CHART. IT IS NOT A COPY OF THE [employer] PROGRESS NOTE. LELE
== END ==
LOC: M PAIN 09:00
PROVIDERS: ATTEND Nurse Practitioner Family
DX: M79.18 Myalgia, other site (principal); M54.2 Cervicalgia

== ENCOUNTER → 2020-04-17 | Outpatient (CLI) | payer OTHER | LOC: M LABSMTC 10:17 | PROVIDERS: ATTEND Anesthesiology | DX: Z03.818 Encounter for observation for suspected exposure to other biological agents ruled out (principal); Z11.59 Encounter for screening for other viral diseases | CPT/HCPCS: C9803; U0003 ==

== ENCOUNTER → 2020-04-20 | Outpatient (CLI) | payer OTHER ==
--- NOTE | 2020-04-24 01:08 | ECWPNPC ---
PATIENT NAME: KVNG COBB : 1955 GENDER: FEMALE VISIT DATE: 04/20/2020 DISCHARGE DATE: 04/20/20 1246 VISIT LOCKED DATE TIME: PHYSICIAN: TRISTAN MANZO MD RESOURCE: TRISTAN MANZO MD REASON FOR APPOINTMENT 1. TPI LEFT NECK W/ STEROID HISTORY OF PRESENT ILLNESS GENERAL: -. FALL RISK SCREENING: SCREENING :NO FALLS REPORTED IN THE LAST YEAR PAIN SCREENING: PATIENT HAS A COMPLAINT OF ACUTE OR CHRONIC PAIN :YES 04/19/20 INTENSITY OF PAIN (SCALE OF 1 TO 10):3 WHAT DOES YOUR PAIN FEEL LIKE:ACHING, CONTINOUS PAIN IS INCREASED BY: POSITIONING PAIN IS DECREASED BY: RESTING NECK NURSING NOTE: -. PAIN CENTER INTAKE QUESTIONS: DO YOU HAVE A HISTORY OF MRSA? :NO DO YOU TAKE A BLOOD THINNERS? :NO DO YOU HAVE ANY BLEEDING DISORDERS? :NO ANY NEW NUMBNESS OR WEAKNESS IN YOUR LEGS OR ARMS? :NO ANY PACEMAKER,DEFIBRILLATOR, OR DORSAL COLUMN STIMULATOR? :NO DO YOU HAVE ANY RASHES OR OPEN SORES? :NO ARE YOU ALLERGIC TO IV DYE? :NO ARE YOU DIABETIC? :NO ANY NEW PROBLEMS WITH YOUR MEDICATIONS? :NO HAVE YOU RECEIVED A VACCINE IN THE PAST 30 DAYS? :NO DO YOU PLAN TO RECEIVE A VACCINE IN THE NEXT 21 DAYS? :NO DO YOU TAKE ANY IMMUNOSUPPRESSIVE MEDICATIONS? :NO ANY HISTORY OF SEIZURES? :NO ANY HISTORY OF CARDIAC ISSUES OR EVENTS? :NO DO YOU HAVE SLEEP APNEA? YES, NO CPAP. ANY RECENT HEAD INJURY? :NO DO YOU HAVE ANY NEW INFECTIONS? :NO IS THERE A CHANCE YOU COULD BE ? :NO ARE YOU BREAST FEEDING? :NO WHEN DID YOU LAST EAT? : -04/20/2020 0500 WHEN DID YOU LAST DRINK? : -04/20/2020 0500 WHAT DID YOU LAST DRINK? : -BLACK COFFEE NAME OF PERSON DRIVING YOU HOME? : -GUANAKITO DO YOU HAVE ANY OTHER QUESTIONS OR CONCERNS? : - CURRENT MEDICATIONS TAKING ZOLPIDEM TARTRATE ER 12.5 MG TABLET EXTENDED RELEASE 1 TABLET AT BEDTIME NEEDED ORALLY ONCE A DAY, NOTES: 04/190 TAKING TIZANIDINE HCL 4 MG TABLET 1/2 TO 1 TABLET NEEDED ORALLY TWO TIMES A DAY PRN, NOTES: > 2 MONTHS TAKING LOSARTAN POTASSIUM 50 MG TABLET DIRECTED ORALLY , NOTES: 6/18 1800 TAKING BUPROPION HCL ER (SR) 150 MG TABLET EXTENDED RELEASE 12 HOUR 1 TABLET IN THE MORNING ORALLY BID, NOTES: 04/20 500 TAKING VITAMIN D (ERGOCALCIFEROL) 50 MCG (1999) CAPSULE 1 CAPSULE ORALLY DAILY, NOTES: 04/19 1800 TAKING ASPIR-LOW 81 MG TABLET DELAYED RELEASE 1 TABLET ORALLY ONCE A DAY, NOTES: 04/19 2000 TAKING CARVEDILOL 3.125 MG TABLET DIRECTED ORALLY BID, NOTES: 04/20 500 TAKING AMLODIPINE BESYLATE 5 MG TABLET 1 TABLET ORALLY ONCE A DAY, NOTES: 04/20 500 TAKING HYDROCHLOROTHIAZIDE 25 MG TABLET 1 TABLET IN THE MORNING ORALLY ONCE A DAY, NOTES: 04/20 500 MEDICATION LIST REVIEWED AND RECONCILED WITH THE PATIENT PAST MEDICAL HISTORY HTN HEADACHES LEFT SUBCLAVIAN STEAL SYNDROME ANXIETY DEPRESSION INSOMNIA SLEEP APNEA IMPROVED AFTER TONSILLECTOMY CHRONIC NECK AND BACK PAIN DETACHED LEFT RETINA TEARING OF RIGHT RETINA ALLERGIES METHOCARBAMOL: RASH - ALLERGY SURGICAL HISTORY TONSILLECTOMY DETACHED RETINA REPAIR -LEFT LEFT SUBCLAVIAN STENT BILAT CATARACT SURGERY HYSTERECTOMY RIGHT MIDDLE FINGER TRIGGER FINGER REPAIR RETINAL TEAR RIGHT EYE REPAIR WITH LASER FAMILY HISTORY FATHER: ALIVE MOTHER: ALIVE 1 BROTHER(S) , 1 SISTER(S) . 1 SON(S) , 1 DAUGHTER(S) - HEALTHY. SOCIAL HISTORY GENERAL: TOBACCO USE ARE YOU A:FORMER SMOKER HOW LONG HAS IT BEEN SINCE YOU LAST SMOKED?> 10 YEARS LATEX QUESTIONNAIRE LATEX ALLERGY : HAVE YOU EVER DEVELOPED ANY TYPE OF REACTION AFTER HANDLING LATEX PRODUCTS SUCH RUBBER GLOVES, CONDOMS, DIAPHRAGMS, BALLOONS, SOCKS, OR UNDERWEAR?NO LATEX ALLERGY : HAVE YOU EVER DEVELOPED ANY TYPE OF REACTION DURING OR AFTER DENTAL APPOINTMENT, VAGINAL/RECTAL EXAMINATION, SURGICAL PROCEDURE, OR ANY OTHER EXPOSURE?NO DATE ASKED : 04/05/2020 LATEX RISK : HAVE YOU EVER HAD ANY DIFFICULTY BREATHING OR HIVES AFTER EATING OR HANDLING ANY FRUITS, OR VEGETABLES; SUCH KIWI, BANANAS, STONE FRUITS, OR CHESTNUTSNO LATEX RISK : DO YOU HAVE A PREVIOUS PERSONAL HISTORY OF MORE THAN NINE SURGERIES, SPINA BIFIDA, OR REPEATED CATHERIZATIONS? NO LATEX RISK : ARE YOU FREQUENTLY EXPOSED TO LATEX PRODUCTS IN YOUR OCCUPATION?NO ALCOHOL SCREENING DID YOU HAVE A DRINK CONTAINING ALCOHOL IN THE PAST YEAR?YES HOW OFTEN DID YOU HAVE SIX OR MORE DRINKS ON ONE OCCASION IN THE PAST YEAR?NEVER (0 POINTS) HOW MANY DRINKS DID YOU HAVE ON A TYPICAL DAY WHEN YOU WERE DRINKING IN THE PAST YEAR?1 OR 2 (0 POINTS) HOW OFTEN DID YOU HAVE A DRINK CONTAINING ALCOHOL IN THE PAST YEAR?MONTHLY OR LESS (1 POINT) POINTS1 INTERPRETATIONNEGATIVE RECREATIONAL DRUG USE DRUG USE?NO PT DENIES PATIENT DENIES ABUSE OR MISSUSED OF ANY MEDICATION. [employer] [id number] OTHER LANGUAGE LANGUAGES SPOKEN:MONGOLIAN LEARNING BARRIERS / SPECIAL NEEDS BARRIERS TO LEARNING?NO HEARING IMPAIRED?NO VISION IMPAIRED?YES COGNITIVELY IMPAIRED?NO :CORRECTIVE LENSES READINESS TO LEARN?YES LEARNING PREFERENCES?NO LEARNING CAPABILITIES PRESENT?YES EMOTIONAL BARRIERS?NO SPECIAL DEVICES?NO PAIN CLINIC PFS, CLERGY, PUBLIC HEALTH REFERRALS HAS THE PATIENT BEEN EDUCATED REGARDING HIS/HER PLAN OF CARE?YES HAS THE PATIENT BEEN EDUCATED REGARDING PAIN, THE RISK FOR PAIN, THE IMPORTANCE OF EFFECTIVE PAIN MANAGEMENT, AND THE PAIN ASSESSMENT PROCESS?YES ADVANCE DIRECTIVE ADVANCE DIRECTIVE DISCUSSED WITH PATIENT:YES PT DOES NOT HAVE ANY ADVANCED DIRECTVES - HCP INFORMATION GIVEN AT THIS TIME, PATIENT DECLINES ASSISTANCE IN FILLING OUT THE FORM. HOSPITALIZATION/MAJOR DIAGNOSTIC PROCEDURE BLOOD PRESSURE/CHEST PRESSURE 04/2016 VITAL SIGNS WT 139.6 LBS, HT 66 IN, BMI 22.53 INDEX, BP 129/69 MM HG, HR 73 /MIN, RR 18 /MIN, TEMP 98.0 F, OXYGEN SAT % 97%, SAFE IN ENV? (Y/N) YES, NA INITIALS AW 1112, REVIEWED BY: AVELINO. ASSESSMENTS MYALGIA, OTHER SITE - M79.18 (PRIMARY) TREATMENT OTHERS CLINICAL NOTES: PRE SCREENING CALL DONE 04/19/20 EM. PROCEDURES PAIN NURSING RECORD PRE-PROCEDURE IV SITE N/A, PRE-PROCEDURE ORAL MEDICATIONS VALIUM 10 MG GIVEN AT 1130 [facility] PROCEDURE PHYSICIAN IN ROOM 1215, START 1219, FINISH 1223, STEROID KENALOG, O2 RA, ECG N/A, PATIENT SHIELDED NO, SAFETY STRAP NO, PREP ALCOHOL, IV INFUSED N/A, DRESSING TEGADERM LOC: 1. ALERT, ORIENTED RESP: 1. REGULAR, NO DYSPNEA COLOR: 1. PINK SKIN: 1. WARM, DRY POSITION: 4. OTHER -SITTING VITALS: ANILA ARAIZA 04/20/2020 12:37:24 PM > 149/68 80-18 98% DISCHARGE: POST PAIN 0, DRESSING SITE DRY AND INTACT, IV N/A, GAIT STEADY, TEACHING COMPLETED, PATIENT ACKNOWLEDGES UNDERSTANDING YES, PATIENT DISCHARGED AT 1245 PN TRIGGER POINT INJECTION WITH STEROIDS PRE PROCEDURE DIAGNOSIS 1. MYALGIA 2. PAIN AT LEFT NECK AREA POST PROCEDURE DIAGNOSIS 1. MYALGIA 2. PAIN AT LEFT NECK AREA PROCEDURE TRIGGER POINT INJECTION AT LEFT NECK AREA SURGEON DR. TRISTAN MANZO ANGLE BENDER NONE ANESTHESIA LOCAL PRE PROCEDURE NOTE THE PATIENT HAS A HISTORY OF CHRONIC PAIN AT THE LEFT NECK AREA. I EVALUATED THE PATIENT AND REVIEWED THE CHART. THERE IS EVIDENCE OF BANDS OF TISSUE WITH RESTRICTION OF MOVEMENT AND PRESENCE OF TRIGGER POINT AT THE LEFT NECK AREA. I WENT OVER THE RISKS, ALTERNATIVES, AND BENEFITS ASSOCIATED WITH THIS PROCEDURE. I DISCUSSED THAT THE USE OF STEROIDS MAY CONTRIBUTE TO IMMUNOSUPPRESSION OF THE PATIENT'S BODY AGAINST INFECTIONS SUCH COVID-19. THE PATIENT IS AWARE OF THE POTENTIAL COMPLICATIONS ASSOCIATED WITH THIS VIRUS, INCLUDING, BUT NOT LIMITED TO, . I DISCUSSED THE USE OF DEXAMETHASONE INSTEAD OF KENALOG; HOWEVER, THE PATIENT WOULD LIKE TO MOVE FORWARD WITH KENALOG. THE PATIENT WOULD LIKE TO PROCEED AND GIVE CONSENT TO PERFORMED THE PROCEDURE. THE PATIENT DENIES UNEXPLAINABLE WEIGHT LOSS, FEVER, CHILLS, OR NEW CHANGES IN URINARY OR BOWEL CONTROL. THE PATIENT IS COVID-19 NEGATIVE DESCRIPTION OF PROCEDURE THE PATIENT WAS BROUGHT TO THE PROCEDURE ROOM AND PLACED IN THE SITTING POSITION. THE AREA WAS CLEANED WITH ALCOHOL. THE PROCEDURE WAS DONE USING ASEPTIC STERILE TECHNIQUE. I CHECKED LATERALITY AND THE LEVEL WHERE THE PROCEDURE WAS GOING TO BE PERFORMED WITH THE PATIENT AND THE SUPPORTING STAFF AT THE MOMENT OF THE TIME OUT IN THE PROCEDURE ROOM. USING A 25-GAUGE NEEDLE, TRIGGER POINTS WERE INJECTED AT THE LEFT NECK AREA WITH A TOTAL OF 40 ML OF BUPIVACAINE 0.25% AND KENALOG 40 MG. THERE WAS NO EVIDENCE OF BLOOD, PARESTHESIA OR CEREBROSPINAL FLUID DURING THE PROCEDURE. THE PATIENT WAS SENT TO THE RECOVERY ROOM. THE PATIENT WAS MOVING THE EXTREMITIES AND DOING WELL. THERE WAS NO COMPLICATION DURING THE PROCEDURE. EBL LESS THAN 5 ML POST PROCEDURE NOTE THE PROCEDURE DONE WAS DISCUSSED WITH THE PATIENT. THE PATIENT WILL BE SEEN IN A FOLLOW UP IN THE NEXT FEW WEEKS. I AM LOOKING FOR LONG LASTING PAIN RELIEF FOR THE PATIENT WITH THIS INTERVENTION. INSTRUCTIONS WERE GIVEN, QUESTIONS WERE ANSWERED, AND THE PATIENT EXPRESSED UNDERSTANDING AND AGREES WITH THE PLAN. THE PATIENT IS AWARE TO STAY HOME FOR THE NEXT WEEK, IF POSSIBLE, DUE TO COVID-19. I, EDWARD CARBAJAL, DOCUMENTED THE ABOVE INFORMATION ACTING A SCRIBE FOR DR. MANZO. I HAVE REVIEWED THE ABOVE DOCUMENT, WRITTEN BY EDWARD CARBAJAL, CONTINUITY TESTER, AND I VERIFY THAT IT IS ACCURATE PROCEDURE CODES 16089 INJ TRIGGER POINT / MUSCL DISPOSITION & COMMUNICATION FOLLOW UP F/UP WITH FNPS (REASON: POST TPI LEFT NECK) ELECTRONICALLY SIGNED BY TRISTAN MANZO MD, MD ON 04/23/2020 AT 02:18 PM EDT DISCLAIMER : THIS IS A VISIT SUMMARY EXTRACTED FROM THE [employer] CHART. IT IS NOT A COPY OF THE [employer] PROGRESS NOTE. [place]
== END ==
LOC: M PAIN 11:45
PROVIDERS: ATTEND Anesthesiology
DX: M79.18 Myalgia, other site (principal)

== ENCOUNTER → 2020-12-14 | Outpatient (CLI) | payer OTHER ==
[~2020-12-14] MED LIST changes: +AMLO1TAB24 PO; -AMLO5TAB6 PO; +HYDR-3490 PO; -HYDR25TAB PO
--- NOTE | 2020-12-14 11:59 | REP ---
INDICATION: SUBCIAVIAN ARTERY STENOSIS. Patient is status post left subclavian artery stenting. COMPARISON: Comparison CT angiography 08 August 2019.. TECHNIQUE: Left upper extremity arterial Doppler sonography. FINDINGS: The left subclavian artery stent is seen to be patent. Normal arterial waveforms are noted throughout the left upper extremity arterial circulation. Antegrade flow is observed in the left vertebral artery. Velocity chart left upper extremity: Left subclavian artery PSV 145 cm/S Proximal axillary 112 Distal axillary 56 Proximal brachial 86 Distal brachial 40 Proximal ulnar 35 Distal ulnar 35 Proximal radial 40 Distal radial 31 Vertebral artery 84 IMPRESSION: Patent left subclavian artery stent. Normal velocities and waveforms throughout the left upper extremity arterial tree. <Electronically signed by Gordon Castano > 12/14/20 [id number]
== END ==
LOC: M RAD 09:40
PROVIDERS: ATTEND Surgery
DX: I77.1 Stricture of artery (principal); Z95.828 Presence of other vascular implants and grafts

== ENCOUNTER → 2021-02-11 | Outpatient (CLI) | payer MEDICARE, OTHER ==
--- NOTE | 2021-02-11 13:56 | REP ---
INDICATION: DDD L REGION, R/O OCCULT COCCYX FX. COMPARISON: None. TECHNIQUE: Multiple sequences obtained in the axial, coronal and sagittal planes. FINDINGS: There is very mild ill-defined soft tissue edema in the soft tissues posterior to the tip of the coccyx. The visualized osseous structures, including the entire sacrum and coccyx, demonstrate no bone marrow edema or other abnormal bone marrow signal. There is no occult fracture. I do not see significant sacroiliitis. There is sigmoid diverticulosis. No mass, adenopathy or free fluid is seen in the visualized pelvis. IMPRESSION: No occult fracture or other osseous abnormality identified. <Electronically signed by Alan Gabriel > 02/11/21 [id number]
== END ==
LOC: M RAD 09:23
PROVIDERS: ATTEND Physician Assistant
DX: M51.16 Intervertebral disc disorders with radiculopathy, lumbar region (principal)

== ENCOUNTER → 2021-02-25 | Outpatient (CLI) | payer MEDICARE, OTHER ==
[2021-02-26 10:08] LABS: IgG P18 AB Absent (.); IgG P23 AB Absent (.); IgG P28 AB Absent (.); IgG P30 AB Absent (.); IgG P39 AB Absent (.); IgG P41 AB Present (.); IgG P45 AB Absent (.); IgG P66 AB Absent (.); IgG P93 AB Absent (.); IgM P23 AB Absent (.); IgM P39 AB Absent (.); IgM P41 AB Absent (.); LYME IgG WB INTERPRETATION Negative (.); LYME IgM WB INTERPRETATION Negative (.)
== END ==
LOC: M LAB 08:55
PROVIDERS: ATTEND Physician Assistant
DX: L92.0 Granuloma annulare (principal)
CPT/HCPCS: 36415; 86617; G0463

== ENCOUNTER → 2021-04-15 | Outpatient (CLI) | payer MEDICARE, OTHER ==
[2021-04-15 10:03] LABS: BLOOD UREA NITROGEN 10 MG/DL (7-18); CREATININE FOR GFR 0.83 MG/DL (0.55-1.30); GLOMERULAR FILTRATION RATE > 60.0 (>45)
== END ==
LOC: M LAB 08:36
PROVIDERS: ATTEND Physician Assistant
DX: M51.36 Other intervertebral disc degeneration, lumbar region (principal)

== ENCOUNTER → 2021-04-16 | Outpatient (REF) | payer MEDICARE, OTHER | LOC: M LAB REF 17:17 | PROVIDERS: ATTEND Physician Assistant | DX: L92.0 Granuloma annulare (principal) ==

== ENCOUNTER → 2021-04-16 | Outpatient (CLI) | payer MEDICARE, OTHER ==
[~2021-04-16] MED LIST changes: +PROHANCE 279.3MG/ML 15ML VIAL As Ordered ONE
--- NOTE | 2021-04-16 12:01 | REP ---
INDICATION: DISC DEGENERATION, R/O COCCYX UPTAKE. COMPARISON: 02/11/2021. TECHNIQUE: Multiple sequences obtained in the axial, coronal and sagittal planes prior to and following the intravenous administration of 12 mL ProHance. Images are obtained centered on the sacrum and coccyx. FINDINGS: No abnormal bone marrow signal there is visualized, with no bone marrow edema or occult fracture. No focal bone lesion is seen. There is no abnormal osseous enhancement. There is not evidence of significant sacroiliitis. Once again in the soft tissues posterior to the tip of the coccyx there is very mild soft tissue edema with no abnormal enhancement. In the visualized pelvis no mass or adenopathy is seen. There is no free fluid. Note is again made of sigmoid diverticulosis. IMPRESSION: No significant abnormalities as discussed above. <Electronically signed by Alan Gabriel > 04/16/21 [id number]
== END ==
LOC: M RAD 09:43
PROVIDERS: ATTEND Physician Assistant
DX: M51.36 Other intervertebral disc degeneration, lumbar region (principal); K57.30 Diverticulosis of large intestine without perforation or abscess without bleeding
CPT/HCPCS: 11104; 72197; A9576

== ENCOUNTER → 2021-05-22 | Outpatient (CLI) | payer MEDICARE, OTHER ==
[~2021-05-22] MED LIST changes: -PROHANCE 279.3MG/ML 15ML VIAL As Ordered ONE; +PROHANCE 279.3MG/ML 15ML VIAL ONE
--- NOTE | 2021-05-23 18:53 | REPVR ---
PROCEDURE INFORMATION: Exam: MR Lumbar Spine Without and With Contrast Exam date and time: 05/22/2021 9:45 AM Age: 66 years old Clinical indication: Low back pain; Additional info: Disc degeneration TECHNIQUE: Imaging protocol: Multiplanar magnetic resonance images of the lumbar spine without and with intravenous contrast. Contrast material: PROHANCE; Contrast volume: 12 ml; Contrast route: INTRAVENOUS (IV); COMPARISON: MRI PELVIS W/O FOLL WITH CON 04/16/2021 10:29 AM FINDINGS: Vertebral body heights are maintained. Disc desiccation and disc height loss at L5-S1. Remaining disc space heights are preserved. Modic type 2 degenerative endplate change at L5-S1. No cord compression. No abnormal cord signal. Conus medullaris terminates at the L1 level. No abnormal enhancement in the lumbar spine. Paravertebral soft tissues are unremarkable. L1-L2: No significant canal or foraminal narrowing. L2-L3: No significant canal or foraminal narrowing. L3-L4: No significant canal or foraminal narrowing. L4-L5: Slight broad-based disc bulge and facet hypertrophy cause mild bilateral foraminal narrowing. No significant canal narrowing. L5-S1: Facet hypertrophy causes mild bilateral foraminal narrowing. No significant canal narrowing. IMPRESSION: Mild spondylotic changes of the lower lumbar spine, as detailed above. Electronically signed by: Sukhwinder Bearden On 05/23/2021 18:53:21 PM
== END ==
LOC: M PLAIMG 08:01
PROVIDERS: ATTEND Physical Medicine & Rehabilitation
DX: M51.36 Other intervertebral disc degeneration, lumbar region (principal)
CPT/HCPCS: 72158; A9576; G0463

== ENCOUNTER → 2021-07-27 | Outpatient (CLI) | payer MEDICARE, OTHER ==
[~2021-07-27] MED LIST changes: -PROHANCE 279.3MG/ML 15ML VIAL ONE
--- NOTE | 2021-07-29 16:31 | SLEEPCENT ---
DATE: 07/27/2021 ORDERED BY: Nocturnal polysomnography was performed for evaluation of sleep physiology in this patient with a history of nonrestorative sleep and snoring. Eight hours and 36 minutes of data were reviewed. There were 480 minutes of sleep identified. Sleep latency was quite short at 0.5 minutes. REM latency was mildly prolonged at 102 minutes. Sleep architecture was fair. There were four to five REM cycles. Overall sleep efficiency was 94.8%. The electrocardiogram showed a sinus rhythm with small complexes. Average heart rate of 60 beats per minute. EEG showed reasonably normal waveforms for wake and sleep. There were only 3 respiratory events identified of 10 seconds in duration or greater for an apnea-hypopnea index within normal limits at 0.4. There was some snoring noted. Arousals from respiratory events occurred only 0.4 times per hour. There was some minor limb activity, one train of 30 events. Limb movement arousal index was only 4.8 and oxygen saturations were 90%+ throughout the study. Some snoring was noted, particularly in REM late in the test. IMPRESSIONS: Normal nocturnal polysomnography with snoring.
== END ==
LOC: M SLEEP 20:00
PROVIDERS: ATTEND Nurse Practitioner Family
DX: G47.33 Obstructive sleep apnea (adult) (pediatric) (principal)

== ENCOUNTER → 2021-09-10 | Outpatient (REF) | payer MEDICARE, OTHER | LOC: M LAB REF 14:04 | PROVIDERS: ATTEND Physician Assistant | DX: C44.321 Squamous cell carcinoma of skin of nose (principal) | CPT/HCPCS: 11102; 11900; 17000; 17003; 88305; J3301 ==

== ENCOUNTER → 2021-10-14 | Outpatient (CLI) | payer MEDICARE, OTHER ==
[~2021-10-14] MED LIST changes: +LOSA50TA28 PO; -LOSA50TA88 PO
== END ==
LOC: M SOG 10:50
PROVIDERS: ATTEND Orthopaedic Surgery Sports Medicine
DX: M18.11 Unilateral primary osteoarthritis of first carpometacarpal joint, right hand (principal); M67.431 Ganglion, right wrist; M25.731 Osteophyte, right wrist; M25.841 Other specified joint disorders, right hand

== ENCOUNTER → 2021-10-23 | Outpatient (CLI) | payer MEDICARE, OTHER ==
[~2021-10-23] MED LIST changes: -LOSA50TA28 PO; +LOSA50TA88 PO
--- NOTE | 2021-10-23 13:07 | REP ---
INDICATION: GANGLION RT WRIST. COMPARISON: None. TECHNIQUE: Real-time sonographic evaluation of a palpable mass in the volar aspect of the wrist with Doppler FINDINGS: There is a 3.5 x 5.3 x 4.7 mm sized mixed but predominantly cystic appearing structure. IMPRESSION: There is a predominantly cystic structure seen in the volar aspect of the right wrist as described above. Consider follow-up with MRI for exact anatomical correlation. <Electronically signed by Marco A Sena > 10/23/21 [id number]
== END ==
LOC: M RAD 12:13
PROVIDERS: ATTEND Orthopaedic Surgery Sports Medicine
DX: M67.431 Ganglion, right wrist (principal)

== ENCOUNTER → 2021-11-11 | Outpatient (CLI) | payer MEDICARE, OTHER ==
[~2021-11-11] MED LIST changes: +LOSA50TA28 PO; -LOSA50TA88 PO
[2021-11-11 11:46] LABS: BASO # 0.1 10^3/uL (0.0-0.2); BASO % 1.2 % (0.0-1.0); EOS # 0.2 10^3/uL (0.0-0.5); EOS % 3.5 % (0.0-3.0); HEMATOCRIT 39.9 % (36.0-47.0); HEMOGLOBIN 13.3 g/dl (12.0-15.5); LYMPH # 1.5 10^3/uL (1.5-5.0); LYMPH % 36.4 % (24.0-44.0); MEAN CORPUSCULAR HEMOGLOBIN 30.2 pg (27.0-33.0); MEAN CORPUSCULAR HGB CONC 33.3 g/dl (32.0-36.5); MEAN CORPUSCULAR VOLUME 90.5 fl (80.0-96.0); MONO # 0.5 10^3/uL (0.0-0.8); MONO % 10.9 % (2.0-8.0); NEUTROPHILS % 47.8 % (36.0-66.0); PLATELET COUNT, AUTOMATED 346 10^3/uL (150-450); RED BLOOD COUNT 4.41 10^6/uL (4.00-5.40); WHITE BLOOD COUNT 4.2 10^3/uL (4.0-10.0)
[2021-11-11 12:21] LABS: ALBUMIN 4.1 GM/DL (3.2-5.2); ALT/SGPT 22 U/L (12-78); BILIRUBIN,TOTAL 0.2 MG/DL (0.2-1.0); BLOOD UREA NITROGEN 11 MG/DL (7-18); CALCIUM LEVEL 9.6 MG/DL (8.8-10.2); CARBON DIOXIDE LEVEL 31 MEQ/L (21-32); CHLORIDE LEVEL 104 MEQ/L (98-107); CREATININE FOR GFR 0.91 MG/DL (0.55-1.30); GLOMERULAR FILTRATION RATE > 60.0 (>45); GLUCOSE, FASTING 89 MG/DL (70-100); POTASSIUM SERUM 4.8 MEQ/L (3.5-5.1); SODIUM LEVEL 139 MEQ/L (136-145); TOTAL PROTEIN 7.3 GM/DL (6.4-8.2)
== END ==
LOC: M LAB 10:48
PROVIDERS: ATTEND Physician Assistant
DX: L92.0 Granuloma annulare (principal)
CPT/HCPCS: 36415; 80053; 85025; G0463

== ENCOUNTER → 2021-12-18 | Outpatient (CLI) | payer MEDICARE, OTHER | LOC: M RAD 10:52 | PROVIDERS: ATTEND Surgery | DX: I77.1 Stricture of artery (principal) ==

== ENCOUNTER → 2022-03-17 | Outpatient (CLI) | payer MEDICARE, OTHER | LOC: M WHC 11:01 | PROVIDERS: ATTEND Physician Assistant | DX: Z12.31 Encounter for screening mammogram for malignant neoplasm of breast (principal); Z78.0 Asymptomatic menopausal state; Z85.820 Personal history of malignant melanoma of skin ==

== ENCOUNTER → 2022-08-27 | Outpatient (CLI) | payer MEDICARE, OTHER | LOC: M SOG 07:59 | PROVIDERS: ATTEND Orthopaedic Surgery Adult Reconstructive Orthopaedic Surgery | DX: M25.551 Pain in right hip (principal); M25.552 Pain in left hip; M25.561 Pain in right knee; M25.562 Pain in left knee ==

== ENCOUNTER → 2022-08-28 | Outpatient (CLI) | payer MEDICARE, OTHER ==
[2022-08-28 14:21] LABS: BASO % 0.6 % (0.0-1.0); EOS # 0.2 10^3/uL (0.0-0.5); EOS % 3.2 % (0.0-3.0); HEMATOCRIT 38.1 % (36.0-47.0); HEMOGLOBIN 12.6 g/dl (12.0-15.5); LYMPH # 1.5 10^3/uL (1.5-5.0); LYMPH % 31.4 % (24.0-44.0); MEAN CORPUSCULAR HEMOGLOBIN 30.8 pg (27.0-33.0); MEAN CORPUSCULAR HGB CONC 33.1 g/dl (32.0-36.5); MEAN CORPUSCULAR VOLUME 93.2 fl (80.0-96.0); MONO # 0.4 10^3/uL (0.0-0.8); NEUTROPHILS # 2.6 10^3/uL (1.5-8.5); NEUTROPHILS % 56.8 % (36.0-66.0); PLATELET COUNT, AUTOMATED 314 10^3/uL (150-450); RED BLOOD COUNT 4.09 10^6/uL (4.00-5.40); WHITE BLOOD COUNT 4.6 10^3/uL (4.0-10.0)
[2022-08-28 15:44] LABS: ERYTHROCYTE SEDIMENTATION RATE 8 mm/hr (0-30)
[2022-08-28 15:47] LABS: ALBUMIN 3.7 GM/DL (3.2-5.2); ALT/SGPT 25 U/L (12-78); BILIRUBIN,TOTAL 0.3 MG/DL (0.2-1.0); BLOOD UREA NITROGEN 11 MG/DL (7-18); CALCIUM LEVEL 9.1 MG/DL (8.8-10.2); CARBON DIOXIDE LEVEL 30 MEQ/L (21-32); CHLORIDE LEVEL 106 MEQ/L (98-107); CREATININE FOR GFR 0.83 MG/DL (0.55-1.30); GLOMERULAR FILTRATION RATE > 60.0 (>45); GLUCOSE, FASTING 74 MG/DL (70-100); POTASSIUM SERUM 3.7 MEQ/L (3.5-5.1); RHEUMATOID FACTOR QUANT < 10.0 IU/ML (<15.0); SODIUM LEVEL 139 MEQ/L (136-145); TOTAL PROTEIN 6.9 GM/DL (6.4-8.2); URIC ACID 3.4 MG/DL (2.6-6.0)
[2022-08-29 23:07] LABS: ANA (HEP2) Positive (.); CYCLIC CITRULLINATED PEPTIDE 3 units (0-19)
== END ==
LOC: M LAB 13:44
PROVIDERS: ATTEND Orthopaedic Surgery Adult Reconstructive Orthopaedic Surgery
DX: M25.551 Pain in right hip (principal); M22.2X1 Patellofemoral disorders, right knee; M22.2X2 Patellofemoral disorders, left knee

== ENCOUNTER → 2022-09-24 | Outpatient (CLI) | payer MEDICARE, OTHER | LOC: M SOG 13:26 | PROVIDERS: ATTEND Orthopaedic Surgery Adult Reconstructive Orthopaedic Surgery | DX: M25.531 Pain in right wrist (principal) ==

== ENCOUNTER → 2022-10-01 | Outpatient (RCR) | payer MEDICARE, OTHER | LOC: M PT 09-08 10:18 | PROVIDERS: ATTEND Orthopaedic Surgery Adult Reconstructive Orthopaedic Surgery | DX: M22.2X1 Patellofemoral disorders, right knee (principal) ==

== ENCOUNTER → 2023-01-07 | Outpatient (CLI) | payer MEDICARE, OTHER | LOC: M RAD 10:59 | PROVIDERS: ATTEND Surgery | DX: I77.1 Stricture of artery (principal) ==

== ENCOUNTER → 2023-02-05 | Outpatient (REF) | payer MEDICARE, OTHER ==
[2023-02-05 17:05] LABS: C REACTIVE PROTEIN QUANTITATIV < 0.40 MG/DL (<1.0)
[2023-02-05 17:06] LABS: COMPLEMENT C3 109.6 MG/DL (90.0-170.0); COMPLEMENT C4 21.8 MG/DL (12-36)
[2023-02-05 17:07] LABS: ALBUMIN 4.3 G/DL (3.2-5.2); ALKALINE PHOSPHATASE 52 U/L (46-116); ALT/SGPT 22 U/L (7.0-40); AST/SGOT 21 U/L (<34); BILIRUBIN,TOTAL 0.4 MG/DL (0.3-1.2); BLOOD UREA NITROGEN 12 MG/DL (9-23); CALCIUM LEVEL 9.2 MG/DL (8.3-10.6); CARBON DIOXIDE LEVEL 29 MMOL/L (20-31); CHLORIDE LEVEL 105 MMOL/L (98-107); CREATININE FOR GFR 0.84 MG/DL (0.55-1.30); GLOMERULAR FILTRATION RATE > 60.0 (>45); GLUCOSE, FASTING 78 MG/DL (74-106); POTASSIUM SERUM 3.9 MMOL/L (3.5-5.1); SODIUM LEVEL 141 MMOL/L (136-145); TOTAL PROTEIN 7.3 G/DL (5.7-8.2)
[2023-02-05 17:10] LABS: APPEARANCE, URINE CLEAR (CLEAR); BACTERIA, URINE AUTO NEGATIVE (NEGATIVE); BILIRUBIN, URINE AUTO NEGATIVE (NEGATIVE); BLOOD, URINE BLOOD 1+ (NEGATIVE); COLOR, URINE STRAW (YELLOW); GLUCOSE, URINE (UA) AUTO NEGATIVE (NEGATIVE); KETONE, URINE AUTO NEGATIVE (NEGATIVE); LEUKOCYTE ESTERASE, URINE AUTO NEGATIVE (NEGATIVE); NITRITE, URINE AUTO NEGATIVE (NEGATIVE); PROTEIN, URINE AUTO NEGATIVE (NEGATIVE); RBC, URINE AUTO 0 /HPF (0-3); SPECIFIC GRAVITY URINE AUTO 1.008 (1.002-1.035); SQUAMOUS EPITHELIAL CELL UR AU 0 /HPF (0-6); UROBILINOGEN, URINE AUTO 0.2 mg/dL (0.0-2.0); WBC, URINE AUTO 0 /HPF (0-3)
[2023-02-05 17:15] LABS: BASO % 0.7 % (0.0-1.0); EOS # 0.1 10^3/uL (0.0-0.5); EOS % 2.2 % (0.0-3.0); HEMATOCRIT 39.9 % (36.0-47.0); HEMOGLOBIN 13.3 g/dl (12.0-15.5); LYMPH # 1.4 10^3/uL (1.5-5.0); LYMPH % 30.6 % (24.0-44.0); MEAN CORPUSCULAR HGB CONC 33.3 g/dl (32.0-36.5); MONO # 0.4 10^3/uL (0.0-0.8); MONO % 7.9 % (2.0-8.0); NEUTROPHILS # 2.7 10^3/uL (1.5-8.5); NEUTROPHILS % 58.6 % (36.0-66.0); PLATELET COUNT, AUTOMATED 357 10^3/uL (150-450); RED BLOOD COUNT 4.29 10^6/uL (4.00-5.40); WHITE BLOOD COUNT 4.6 10^3/uL (4.0-10.0)
[2023-02-05 17:28] LABS: CREATININE,RANDOM URINE 36.3 MG/DL
[2023-02-05 17:30] LABS: TOTAL PROTEIN,RANDOM URINE < 6.0 MG/DL (0.0-14.0)
[2023-02-05 17:32] LABS: ERYTHROCYTE SEDIMENTATION RATE 10 mm/hr (0-30)
[2023-02-13 13:08] LABS: COMPLEMENT TOTAL (CH50) > 60 U/mL (>41); HLA-B27 Negative (.)
== END ==
LOC: M SFHCRHEU 13:52
PROVIDERS: ATTEND Internal Medicine Rheumatology
DX: R76.8 Other specified abnormal immunological findings in serum (principal); M25.50 Pain in unspecified joint; M35.00 Sjogren syndrome, unspecified; L92.0 Granuloma annulare

== ENCOUNTER → 2023-02-16 | Outpatient (REF) | payer MEDICARE, OTHER | LOC: M SFHCDERM 17:50 | PROVIDERS: ATTEND Physician Assistant | DX: L81.4 Other melanin hyperpigmentation (principal) ==

== ENCOUNTER → 2023-03-19 | Outpatient (CLI) | payer MEDICARE, OTHER | LOC: M WHC 12:51 | PROVIDERS: ATTEND Physician Assistant | DX: Z12.31 Encounter for screening mammogram for malignant neoplasm of breast (principal) ==

== ENCOUNTER → 2023-06-11 | Outpatient (CLI) | payer MEDICARE, OTHER | LOC: M WHC 14:29 | PROVIDERS: ATTEND Physician Assistant | DX: Z13.820 Encounter for screening for osteoporosis (principal) ==

== ENCOUNTER → 2023-12-25 | Outpatient (REF) | payer MEDICARE, OTHER | LOC: M LAB REF 10:50 | PROVIDERS: ATTEND Physician Assistant | DX: R19.7 Diarrhea, unspecified (principal) ==

== ENCOUNTER → 2024-01-01 | Outpatient (CLI) | payer MEDICARE, OTHER | LOC: M RAD 13:31 | PROVIDERS: ATTEND Surgery | DX: I77.1 Stricture of artery (principal) ==

== ENCOUNTER → 2024-02-03 | Outpatient (CLI) | payer MEDICARE ==
[2024-02-03 09:44] LABS: BASO % 0.7 % (0.0-1.0); EOS # 0.1 10^3/uL (0.0-0.5); EOS % 1.8 % (0.0-3.0); HEMATOCRIT 38.4 % (36.0-47.0); HEMOGLOBIN 12.8 g/dl (12.0-15.5); LYMPH # 1.3 10^3/uL (1.5-5.0); LYMPH % 29.3 % (24.0-44.0); MEAN CORPUSCULAR HEMOGLOBIN 30.5 pg (27.0-33.0); MEAN CORPUSCULAR HGB CONC 33.3 g/dl (32.0-36.5); MEAN CORPUSCULAR VOLUME 91.4 fl (80.0-96.0); MONO # 0.4 10^3/uL (0.0-0.8); NEUTROPHILS # 2.7 10^3/uL (1.5-8.5); PLATELET COUNT, AUTOMATED 309 10^3/uL (150-450); WHITE BLOOD COUNT 4.5 10^3/uL (4.0-10.0)
[2024-02-03 10:09] LABS: ALBUMIN 3.5 G/DL (3.2-5.2); ALKALINE PHOSPHATASE 50 U/L (46-116); ALT/SGPT 16 U/L (7.0-40); AST/SGOT 19 U/L (<34); BILIRUBIN,TOTAL 0.5 MG/DL (0.3-1.2); BLOOD UREA NITROGEN 14 MG/DL (9-23); CALCIUM LEVEL 9.3 MG/DL (8.3-10.6); CARBON DIOXIDE LEVEL 29 MMOL/L (20-31); CHLORIDE LEVEL 105 MMOL/L (98-107); GLOMERULAR FILTRATION RATE > 60.0 (>45); GLUCOSE, FASTING 94 MG/DL (74-106); POTASSIUM SERUM 4.3 MMOL/L (3.5-5.1); SODIUM LEVEL 138 MMOL/L (136-145); TOTAL PROTEIN 6.6 G/DL (5.7-8.2)
== END ==
LOC: M LAB 08:38
PROVIDERS: ATTEND Physician Assistant
DX: R14.0 Abdominal distension (gaseous) (principal)

== ENCOUNTER → 2024-02-09 | Outpatient (CLI) | payer MEDICARE, OTHER | LOC: M SOG 13:01 | PROVIDERS: ATTEND Physician Assistant | DX: M18.0 Bilateral primary osteoarthritis of first carpometacarpal joints (principal) ==

== ENCOUNTER → 2024-02-18 | Outpatient (REF) | payer MEDICARE, OTHER ==
[~2024-02-18] MED LIST changes: -ZOLP12.518 PO; +ZOLP12.535 PO
== END ==
LOC: M SFHCDERM 15:59
PROVIDERS: ATTEND Physician Assistant
DX: L82.1 Other seborrheic keratosis (principal)

== ENCOUNTER → 2024-02-22 | Outpatient (CLI) | payer MEDICARE, OTHER ==
[~2024-02-22] MED LIST changes: +GASTROGRAFIN SOLUTION 30ML ONE; +ZOLP12.518 PO; -ZOLP12.535 PO
== END ==
LOC: M PLAIMG 10:55
PROVIDERS: ATTEND Physician Assistant
DX: R19.7 Diarrhea, unspecified (principal)
CPT/HCPCS: 74176; Q9963

== ENCOUNTER → 2024-03-23 | Outpatient (CLI) | payer MEDICARE, OTHER ==
[~2024-03-23] MED LIST changes: -GASTROGRAFIN SOLUTION 30ML ONE; -ZOLP12.518 PO; +ZOLP12.535 PO
== END ==
LOC: M EKG 11:51
PROVIDERS: ATTEND Physician Assistant
DX: R00.8 Other abnormalities of heart beat (principal)

== ENCOUNTER → 2024-03-31 | Outpatient (CLI) | payer MEDICARE, OTHER | LOC: M WHC 07:50 | PROVIDERS: ATTEND Physician Assistant | DX: Z12.31 Encounter for screening mammogram for malignant neoplasm of breast (principal) ==

== ENCOUNTER → 2024-06-20 | Outpatient (REF) | payer MEDICARE, OTHER | LOC: M LAB REF 13:55 | PROVIDERS: ATTEND Internal Medicine Gastroenterology | DX: R19.4 Change in bowel habit (principal); R19.7 Diarrhea, unspecified; R15.9 Full incontinence of feces; R93.3 Abnormal findings on diagnostic imaging of other parts of digestive tract; R11.0 Nausea; R63.4 Abnormal weight loss ==

== ENCOUNTER → 2024-06-26 | Outpatient (CLI) | payer MEDICARE, OTHER | LOC: M SLEEP 20:00 | PROVIDERS: ATTEND Nurse Practitioner Adult Health | DX: R06.83 Snoring (principal) ==

== ENCOUNTER → 2024-08-10 | Outpatient (CLI) | payer MEDICARE, OTHER ==
[2024-08-10 15:08] LABS: BASO % 0.2 % (0.0-1.0); EOS # 0.1 10^3/uL (0.0-0.5); EOS % 1.1 % (0.0-3.0); HEMOGLOBIN 12.5 g/dl (12.0-15.5); LYMPH # 1.5 10^3/uL (1.5-5.0); MEAN CORPUSCULAR HEMOGLOBIN 30.4 pg (27.0-33.0); MEAN CORPUSCULAR HGB CONC 32.9 g/dl (32.0-36.5); MEAN CORPUSCULAR VOLUME 92.5 fl (80.0-96.0); MONO # 0.3 10^3/uL (0.0-0.8); MONO % 6.9 % (2.0-8.0); NEUTROPHILS # 2.8 10^3/uL (1.5-8.5); NEUTROPHILS % 60.6 % (36.0-66.0); PLATELET COUNT, AUTOMATED 329 10^3/uL (150-450); RED BLOOD COUNT 4.11 10^6/uL (4.00-5.40); WHITE BLOOD COUNT 4.7 10^3/uL (4.0-10.0)
[2024-08-10 15:11] LABS: APPEARANCE, URINE CLEAR (CLEAR); BACTERIA, URINE AUTO NEGATIVE (NEGATIVE); BILIRUBIN, URINE AUTO NEGATIVE (NEGATIVE); BLOOD, URINE BLOOD 2+ (NEGATIVE); COLOR, URINE YELLOW (YELLOW); GLUCOSE, URINE (UA) AUTO NEGATIVE (NEGATIVE); KETONE, URINE AUTO NEGATIVE (NEGATIVE); LEUKOCYTE ESTERASE, URINE AUTO NEGATIVE (NEGATIVE); NITRITE, URINE AUTO NEGATIVE (NEGATIVE); PROTEIN, URINE AUTO NEGATIVE (NEGATIVE); RBC, URINE AUTO 6 /HPF (0-3); SPECIFIC GRAVITY URINE AUTO 1.016 (1.002-1.035); SQUAMOUS EPITHELIAL CELL UR AU 0 /HPF (0-6); UROBILINOGEN, URINE AUTO 0.2 mg/dL (0.0-2.0); WBC, URINE AUTO 0 /HPF (0-3)
[2024-08-10 15:19] LABS: ERYTHROCYTE SEDIMENTATION RATE 7 mm/hr (0-30)
[2024-08-10 15:33] LABS: C REACTIVE PROTEIN QUANTITATIV < 0.40 MG/DL (<1.0)
[2024-08-10 15:33] LABS: CREATININE,RANDOM URINE 105.1 MG/DL
[2024-08-10 15:34] LABS: COMPLEMENT C3 101.3 MG/DL (90.0-170.0); COMPLEMENT C4 18.4 MG/DL (12-36)
[2024-08-10 15:35] LABS: ALBUMIN 3.9 G/DL (3.2-5.2); ALKALINE PHOSPHATASE 57 U/L (46-116); ALT/SGPT 14 U/L (7.0-40); AST/SGOT 13 U/L (<34); BILIRUBIN,TOTAL 0.3 MG/DL (0.3-1.2); BLOOD UREA NITROGEN 16 MG/DL (9-23); CALCIUM LEVEL 10.3 MG/DL (8.3-10.6); CARBON DIOXIDE LEVEL 29 MMOL/L (20-31); CHLORIDE LEVEL 105 MMOL/L (98-107); CREATININE FOR GFR 0.82 MG/DL (0.55-1.30); GLOMERULAR FILTRATION RATE > 60.0 (>45); GLUCOSE, FASTING 81 MG/DL (74-106); POTASSIUM SERUM 4.3 MMOL/L (3.5-5.1); SODIUM LEVEL 137 MMOL/L (136-145); TOTAL PROTEIN 6.9 G/DL (5.7-8.2)
== END ==
LOC: M LAB 14:18
PROVIDERS: ATTEND Internal Medicine Rheumatology
DX: R76.8 Other specified abnormal immunological findings in serum (principal)

== ENCOUNTER → 2024-08-11 | Outpatient (REF) | payer MEDICARE, OTHER | LOC: M LAB REF 13:25 | PROVIDERS: ATTEND Physician Assistant | DX: R19.4 Change in bowel habit (principal); R19.7 Diarrhea, unspecified; R11.0 Nausea; R63.4 Abnormal weight loss ==

== ENCOUNTER → 2024-09-02 | Outpatient (CLI) | payer MEDICARE, OTHER | LOC: M RAD 06:56 | PROVIDERS: ATTEND Physician Assistant | DX: R68.81 Early satiety (principal); R19.06 Epigastric swelling, mass or lump | CPT/HCPCS: 78264; A9541 ==

== ENCOUNTER → 2024-09-14 | Outpatient (REF) | payer MEDICARE, OTHER ==
[2024-09-14 14:41] LABS: APPEARANCE, URINE CLEAR (CLEAR); BACTERIA, URINE AUTO NEGATIVE (NEGATIVE); BILIRUBIN, URINE AUTO NEGATIVE (NEGATIVE); BLOOD, URINE BLOOD 1+ (NEGATIVE); COLOR, URINE YELLOW (YELLOW); GLUCOSE, URINE (UA) AUTO NEGATIVE (NEGATIVE); KETONE, URINE AUTO NEGATIVE (NEGATIVE); LEUKOCYTE ESTERASE, URINE AUTO NEGATIVE (NEGATIVE); MUCUS, URINE SMALL (NEGATIVE); NITRITE, URINE AUTO NEGATIVE (NEGATIVE); PROTEIN, URINE AUTO NEGATIVE (NEGATIVE); RBC, URINE AUTO 2 /HPF (0-3); SPECIFIC GRAVITY URINE AUTO 1.006 (1.002-1.035); SQUAMOUS EPITHELIAL CELL UR AU 0 /HPF (0-6); UROBILINOGEN, URINE AUTO 0.2 mg/dL (0.0-2.0); WBC, URINE AUTO 0 /HPF (0-3)
== END ==
LOC: M SMT 13:19
PROVIDERS: ATTEND Nurse Practitioner Family
DX: R31.29 Other microscopic hematuria (principal)

== ENCOUNTER → 2024-12-20 | Outpatient (REF) | payer OTHER, MEDICARE ==
[2024-12-20 13:30] LABS: APPEARANCE, URINE CLEAR (CLEAR); BACTERIA, URINE AUTO NEGATIVE (NEGATIVE); BILIRUBIN, URINE AUTO NEGATIVE (NEGATIVE); BLOOD, URINE BLOOD 1+ (NEGATIVE); COLOR, URINE YELLOW (YELLOW); GLUCOSE, URINE (UA) AUTO NEGATIVE (NEGATIVE); KETONE, URINE AUTO NEGATIVE (NEGATIVE); LEUKOCYTE ESTERASE, URINE AUTO NEGATIVE (NEGATIVE); NITRITE, URINE AUTO NEGATIVE (NEGATIVE); PROTEIN, URINE AUTO NEGATIVE (NEGATIVE); RBC, URINE AUTO 1 /HPF (0-3); SPECIFIC GRAVITY URINE AUTO 1.005 (1.002-1.035); SQUAMOUS EPITHELIAL CELL UR AU 0 /HPF (0-6); UROBILINOGEN, URINE AUTO 0.2 mg/dL (0.0-2.0); WBC, URINE AUTO 1 /HPF (0-3)
== END ==
LOC: M SMT 12:39
PROVIDERS: ATTEND Nurse Practitioner Family
DX: R31.29 Other microscopic hematuria (principal)

== ENCOUNTER → 2025-01-13 | Outpatient (CLI) | payer OTHER | LOC: M RAD 11:52 | PROVIDERS: ATTEND Surgery | DX: I77.1 Stricture of artery (principal); Z95.820 Peripheral vascular angioplasty status with implants and grafts ==

== ENCOUNTER → 2025-07-17 | Outpatient (CLI) | payer OTHER ==
[~2025-07-17] MED LIST changes: -ZOLP5TAB PO; +ZOLP5TAB9 PO
[2025-07-17 12:02] LABS: APPEARANCE, URINE CLEAR (CLEAR); BACTERIA, URINE AUTO NEGATIVE (NEGATIVE); BILIRUBIN, URINE AUTO NEGATIVE (NEGATIVE); BLOOD, URINE BLOOD 2+ (NEGATIVE); GLUCOSE, URINE (UA) AUTO NEGATIVE (NEGATIVE); KETONE, URINE AUTO NEGATIVE (NEGATIVE); LEUKOCYTE ESTERASE, URINE AUTO NEGATIVE (NEGATIVE); NITRITE, URINE AUTO NEGATIVE (NEGATIVE); PROTEIN, URINE AUTO NEGATIVE (NEGATIVE); RBC, URINE AUTO 4 /HPF (0-3); SPECIFIC GRAVITY URINE AUTO 1.011 (1.002-1.035); SQUAMOUS EPITHELIAL CELL UR AU 0 /HPF (0-6); UROBILINOGEN, URINE AUTO 0.2 mg/dL (0.0-2.0); WBC, URINE AUTO 1 /HPF (0-3)
[2025-07-17 12:15] LABS: BASO # 0.0 10^3/uL (0.0-0.2); BASO % 0.6 % (0.0-1.0); EOS # 0.1 10^3/uL (0.0-0.5); EOS % 1.7 % (0.0-3.0); LYMPH # 1.5 10^3/uL (1.5-5.0); LYMPH % 31.0 % (24.0-44.0); MONO # 0.5 10^3/uL (0.0-0.8); MONO % 9.4 % (2.0-8.0); NEUTROPHILS # 2.7 10^3/uL (1.5-8.5); NEUTROPHILS % 57.1 % (36.0-66.0); PLATELET COUNT, AUTOMATED 309 10^3/uL (150-450)
[2025-07-17 12:21] LABS: ERYTHROCYTE SEDIMENTATION RATE 10 mm/hr (0-30)
[2025-07-17 12:48] LABS: C REACTIVE PROTEIN QUANTITATIV < 0.50 MG/DL (<1.0)
[2025-07-17 12:50] LABS: ALT/SGPT 18 U/L (7.0-40); AST/SGOT 17 U/L (<34); CALCIUM LEVEL 9.6 MG/DL (8.3-10.6); CARBON DIOXIDE LEVEL 29 MMOL/L (20-31); CHLORIDE LEVEL 105 MMOL/L (98-107); CREATININE FOR GFR 0.91 MG/DL (0.55-1.30); GLOMERULAR FILTRATION RATE 68.3 (>45); POTASSIUM SERUM 5.1 MMOL/L (3.5-5.1); SODIUM LEVEL 138 MMOL/L (136-145)
[2025-07-17 12:57] LABS: COMPLEMENT C4 19.9 MG/DL (12-36)
[2025-07-17 13:14] LABS: TOTAL PROTEIN,RANDOM URINE 8.6 MG/DL (0.0-14.0)
== END ==
LOC: M LAB 10:29
PROVIDERS: ATTEND Internal Medicine Rheumatology
DX: R31.29 Other microscopic hematuria (principal)

== ENCOUNTER → 2025-07-21 | Outpatient (REF) | payer OTHER | LOC: M SFHCRHEU 09:54 | PROVIDERS: ATTEND Internal Medicine Rheumatology | DX: Z53.9 Procedure and treatment not carried out, unspecified reason (principal) ==

== ENCOUNTER → 2025-07-27 | Outpatient (CLI) | payer OTHER | LOC: M WHC 12:31 | PROVIDERS: ATTEND Nurse Practitioner Family | DX: Z12.31 Encounter for screening mammogram for malignant neoplasm of breast (principal) ==

== ENCOUNTER → 2025-10-06 | Outpatient (REF) | payer OTHER ==
[2025-10-06 18:56] LABS: CHOLESTEROL LEVEL 151.0 MG/DL (<200); CHOLESTEROL RISK RATIO 2.62 (<5); LDL CHOLESTEROL 74.1 MG/DL (<100); NON-HDL-C 93.5 MG/DL; TRIGLYCERIDES LEVEL 97.0 MG/DL (<150)
[2025-10-06 19:20] LABS: ESTIMATED AVERAGE GLUCOSE 111.0 MG/DL (60-110)
== END ==
LOC: M LAB REF 16:22
PROVIDERS: ATTEND Nurse Practitioner Family
DX: I50.9 Heart failure, unspecified (principal); Z13.29 Encounter for screening for other suspected endocrine disorder; Z79.899 Other long term (current) drug therapy

== ENCOUNTER → 2025-10-30 | Outpatient (CLI) | payer OTHER ==
[2025-10-30 10:15] LABS: CALCIUM LEVEL 9.3 MG/DL (8.3-10.6); CARBON DIOXIDE LEVEL 30.0 MMOL/L (20-31); CHLORIDE LEVEL 104.0 MMOL/L (98-107); CREATININE FOR GFR 0.84 MG/DL (0.55-1.30); GLOMERULAR FILTRATION RATE 75.2 (>45); MAGNESIUM LEVEL 2.0 MG/DL (1.8-2.4); POTASSIUM SERUM 4.9 MMOL/L (3.5-5.1); SODIUM LEVEL 140.0 MMOL/L (136-145)
== END ==
LOC: M LAB 09:01
PROVIDERS: ATTEND Internal Medicine Cardiovascular Disease
DX: I11.0 Hypertensive heart disease with heart failure (principal); I50.32 Chronic diastolic (congestive) heart failure